=== PATIENT | female | born 1965 | race American Indian/Alaskan Native ===

== ENCOUNTER 2020-09-27 15:55 | Inpatient (IN) | payer MEDICARE ==
--- NOTE | 2020-09-28 10:00 | History and Physical Report ---
GP History & Physical - History of Present Illness Date of admission: 09/27/20 Date of Examination: 09/28/20 Reason for Admission: Danger to others, Extensive Evaluation Required, Failure of Outpatient Treatment History of Present Illness: Per ER Note: Patient is 55 years old female with history of schizophrenia. Patient brought to the emergency room accompanied by her son for mental health evaluation. Patient signed stated that she stopped taking her psychiatric medication few days ago. He stated that she became more aggressive and loud and threatening to other people. He stated that she tried to jump in the car this afternoon. Patient is very agitated with pressure speech. Patient is obviously responding to internal stimuli. Patient given Geodon 20 mg IM. Gurpreet Burton is a 55y/o female whom I first evaluated in the ER. At that time the patient was argumentative and guarded. She was responding to internal stimuli. During my evaluation of the patient today, the patient is still acutely psychotic, but worse today. She is walking out of her room shouting, and visibly upset. She is tossing clothing and linen in the [place] in front of another patient's room. She slung a cup at my feet. She says "I'm getting my sh and getting out of here. 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 She is seem standing against the wall in a bizarre way, with her arm raised. When I call her name, she says "I'm trying to protect my son. Don't come up here if your last name is not ." PAST PSYCHIATRIC HISTORY: (obtained info yesterday) Diagnoses: Schizophrenia Suicide attempts or Self-harm behavior: Denies Prior psychiatric hospitalizations: Denies Substance Abuse history: Denies Previous psychiatric medications tried: would not say Outpatient treatment: not in awhile PAST MEDICAL HISTORY: None reported or document Family Psychiatric History: None reported or documented SOCIAL HISTORY Marital Status: Single Living Arrangements: alone Employment Status: Disabled Access to guns/weapons: denies Education: History of Abuse: denies Legal History: denies REVIEW OF SYSTEMS Constitutional: Negative for weight loss ENT: Negative for stridor Respiratory: Negative for cough or hemoptysis All other systems reviewed and are negative MENTAL STATUS EXAMINATION General Appearance and Behavior: Age appropriate, wearing appropriate clothes, cooperative polite with questioning, good eye contact, argumentative, uncooperative, agitated Cooperation: uncooperative, guarded Psychomotor Behavior: Psychomotor normal Mood: Affect and affective range: congruent with stated mood Thought Process: illogical, disorganized, responding to internal stimuli Thought Content: hallucinations Speech: Normal volume, Regular rate and rhythm Suicidal Ideation: Denies Homicidal Ideation: Denies hallucination: Auditory Delusions: None elicited Impulse Control: Intact Insight and Judgment: Poor Memory: Intact Attention: Divided Orientation: Alert and oriented Diagnoses: Schizophrenia Treatment Plan Patient admitted for inpatient psychiatric evaluation, medication adjustment and close monitoring The patient's behavior, mood, sleep and appetite will be closely monitored. Patient enrolled in individual and group therapeutic sessions and encouraged to attend. Patient provided with a safe and structured environment. Patient's physical health needs will be addressed by the Hospitalist. Hospitalist Consulted Labs including CBC, CMP, Lipid profile and Hemoglobin A1C levels ordered for baseline reference Social Assessment will be completed and the Department Manager will work with patient and family to ensure a suitable and safe disposition Medication adjustment will be made as clinically indicated Increased Olanzapine 7.5mg po daily Increased Depakote DR 250mg po BID Start Klonopin 0.5mg po BID x 3 days Start Trazodone 50mg po qhs Usual Wellness Restorationist/Preservation: - Start Trazodone 50 mg po QHS & 50 mg po QHS PRN between 10 PM & 2 AM for insomnia - Start Melatonin 5 mg po QHS to promote circadian rhythm The patient agreed on the treatment plan, understood the risk, benefit, alternative treatment, potential consequence of no treatment, and gave informed consent. Estimated days: 7 Post hospital care: primary care provider, psychiatric provider Case staffed with Dr. Browne Legal Status: Voluntary Reaction to Hospitalization: Accepting Medications and Allergies Allergies Allergy/AdvReac Type Severity Reaction Status Date / Time No Known Allergies Allergy Verified 09/26/20 22:27 Home Medications Medication Instructions Recorded Confirmed Last Taken Type Divalproex Dr [DepaKOTE DR] 125 mg PO BID 09/28/20 09/28/20 Unknown History OLANzapine [ZyPREXA] 2.5 mg PO QDAY 09/28/20 09/28/20 Unknown History Results - Results Labs/Vitals: Laboratory Last Values POC Glucose 173 mg/dL (70-105) H 09/28/20 06:34 Last Vital Signs Temp 97.7 F 09/27/20 22:00 Pulse 76 09/27/20 22:00 Resp 18 09/27/20 22:00 BP 145/84 09/27/20 22:00 Pulse Ox Physical Examination - Constitutional Vitals: Vital Signs Temp Pulse Resp BP Pulse Ox 97.7 F 76 18 145/84 09/27/20 22:00 09/27/20 22:00 09/27/20 22:00 09/27/20 22:00 Temperature -Last 24 Hours Temperature 97.7 F Mental Status Exam - Vital signs Last Vital Signs Temp 97.7 F 09/27/20 22:00 Pulse 76 09/27/20 22:00 Resp 18 09/27/20 22:00 BP 145/84 09/27/20 22:00 Pulse Ox Physician Certification - Certification Statement Physician Certification Statement: This is an acknowledgement statement that GURPREET BURTON is a 55 year old F who requires inpatient psychiatric admission for treatment which could reasonably be expected to improve the patient's condition for Estimated period of time patient will need to remain in the hospital: [ ] Plan for post-hospital care: [ ]
[2020-09-28] MEDS ORDERED: ZIPRASIDONE MESYLATE 20 MG VIAL IM PRN (10:42)
[2020-09-28] MEDS ORDERED: WATER FOR INJ Sterile (PF) 10 ML ONE (10:55)
[2020-09-28] MEDS: NITROFURANTOIN MONOHYD/M-CRYST 100 MG CAP PO SCH ×2 (11:16→21:16)
[2020-09-28] MEDS: clonazePAM 0.5 MG TAB PO SCH ×2 (11:17→21:16)
[2020-09-28] MEDS: DIVALPROEX DR 250 MG TAB PO SCH ×2 (11:20→21:17)
[2020-09-28] MEDS ORDERED: traZODone 50 MG TAB PO SCH (22:00)
[2020-09-29 07:40] LABS: Basophils # (Auto) 0.1 K/mm3 (0.0-0.1); Basophils % (Auto) 0.7 % (0.0-1.8); Eosinophils # (Auto) 0.1 K/mm3 (0.0-0.4); Eosinophils % (Auto) 0.5 % (0.0-4.3); Hematocrit 38.3 % (30.3-42.9); Hemoglobin 12.4 gm/dl (10.1-14.3); Lymphocytes # (Auto) 3.9 K/mm3 (1.2-5.4); Lymphocytes % (Auto) 35.3 % (13.4-35.0); Mean Corpuscular HGB Conc 32 % (30-34); Mean Corpuscular Volume 87 fl (79-97); Monocytes # (Auto) 1.4 K/mm3 (0.0-0.8); Monocytes % (Auto) 12.9 % (0.0-7.3); Platelet Count 339 K/mm3 (140-440); Red Blood Count 4.42 M/mm3 (3.65-5.03); Red Cell Distribution Width 13.9 % (13.2-15.2)
[2020-09-29 08:09] LABS: Albumin 4.6 g/dL (3.9-5); Calcium 10.6 mg/dL (8.4-10.2); Chol/HDL Ratio 6.9 %
--- NOTE | 2020-09-29 08:31 | Progress Note ---
Subjective Date of service: 09/29/20 Principal diagnosis: Acute psychosis Subjective Comment: The patient was seen today, she is delusional. She is talking loudly to herself. Her thoughts are disorganized, but she's much more calm and cooperative today than yesterday. She tells me "I am a desilverizer and I can see under the table." She has a napkin in he hand and states "this is a snake." She then says "naw, I have medicine in here." There is nothing in the napkin. She denies SI/HI. REVIEW OF SYSTEMS Constitutional: Negative for weight loss ENT: Negative for stridor Respiratory: Negative for cough or hemoptysis All other systems reviewed and are negative MENTAL STATUS EXAMINATION General Appearance and Behavior: Age appropriate, wearing appropriate clothes, cooperative polite with questioning, good eye contact, argumentative, uncoopera tive, agitated Cooperation: uncooperative, guarded Psychomotor Behavior: Psychomotor normal Mood: Affect and affective range: congruent with stated mood Thought Process: illogical, disorganized, responding to internal stimuli Thought Content: hallucinations Speech: Normal volume, Regular rate and rhythm Suicidal Ideation: Denies Homicidal Ideation: Denies hallucination: Auditory Delusions: None elicited Impulse Control: Intact Insight and Judgment: Poor Memory: Intact Attention: Divided Orientation: Alert and oriented Diagnoses: Schizophrenia Treatment Plan Patient admitted for inpatient psychiatric evaluation, medication adjustment and close monitoring The patient's behavior, mood, sleep and appetite will be closely monitored. Patient enrolled in individual and group therapeutic sessions and encouraged to attend. Patient provided with a safe and structured environment. Patient's physical health needs will be addressed by the Hospitalist. Hospitalist Consulted Labs including CBC, CMP, Lipid profile and Hemoglobin A1C levels ordered for baseline reference Social Assessment will be completed and the Mail Sorter will work with patient and family to ensure a suitable and safe disposition Medication adjustment will be made as clinically indicated Increased Olanzapine 10mg po daily Increased Depakote DR 250mg po TID Continue Klonopin 0.5mg po BID x 3 days Increase Trazodone 100mg po qhs Usual Wellness Buddhist/Preservation: - Start Trazodone 50 mg po QHS & 50 mg po QHS PRN between 10 PM & 2 AM for insomnia - Start Melatonin 5 mg po QHS to promote circadian rhythm The patient agreed on the treatment plan, understood the risk, benefit, alternative treatment, potential consequence of no treatment, and gave informed consent. Estimated days: 4 Post hospital care: primary care provider, psychiatric provider Case staffed with Dr. Browne Medications and Allergies Allergies Allergy/AdvReac Type Severity Reaction Status Date / Time No Known Allergies Allergy Verified 09/26/20 22:27 Home Medications Medication Instructions Recorded Confirmed Last Taken Type Divalproex Dr [DepaKOTE DR] 125 mg PO BID 09/28/20 09/28/20 Unknown History OLANzapine [ZyPREXA] 2.5 mg PO QDAY 09/28/20 09/28/20 Unknown History Active Meds: Active Medications Clonazepam (Clonazepam 0.5 Mg Tab) 0.5 mg PO BID [facility] Stop: 10/02/20 06:00 Last Admin: 09/28/20 21:16 Dose: 0.5 mg Documented by: Divalproex Sodium (Divalproex Dr 250 Mg Tab) 250 mg PO TID [facility] Nitrofurantoin Macrocrystals (Nitrofurantoin Monohyd/M-Cryst 100 Mg Cap) 100 mg PO BID [facility] Stop: 10/05/20 06:00 Last Admin: 09/28/20 21:16 Dose: 100 mg Documented by: Olanzapine (Olanzapine 10 Mg Tab) 10 mg PO QDAY [facility] Trazodone HCl (Trazodone 50 Mg Tab) 50 mg PO QHS [facility] Last Admin: 09/28/20 21:16 Dose: 50 mg Documented by: Results - Results Labs/Vitals: Laboratory Last Values WBC 11.1 K/mm3 (4.5-11.0) H 09/29/20 07:17 RBC 4.42 M/mm3 (3.65-5.03) 09/29/20 07:17 Hgb 12.4 gm/dl (10.1-14.3) 09/29/20 07:17 Hct 38.3 % (30.3-42.9) 09/29/20 07:17 MCV 87 fl (79-97) 09/29/20 07:17 MCH 28 pg (28-32) 09/29/20 07:17 MCHC 32 % (30-34) 09/29/20 07:17 RDW 13.9 % (13.2-15.2) 09/29/20 07:17 Plt Count 339 K/mm3 (140-440) 09/29/20 07:17 Lymph % (Auto) 35.3 % (13.4-35.0) H 09/29/20 07:17 [place] % (Auto) 12.9 % (0.0-7.3) H 09/29/20 07:17 Eos % (Auto) 0.5 % (0.0-4.3) 09/29/20 07:17 Baso % (Auto) 0.7 % (0.0-1.8) 09/29/20 07:17 Lymph # (Auto) 3.9 K/mm3 (1.2-5.4) 09/29/20 07:17 [place] # (Auto) 1.4 K/mm3 (0.0-0.8) H 09/29/20 07:17 Eos # (Auto) 0.1 K/mm3 (0.0-0.4) 09/29/20 07:17 Baso # (Auto) 0.1 K/mm3 (0.0-0.1) 09/29/20 07:17 Seg Neutrophils % 50.6 % (40.0-70.0) 09/29/20 07:17 Seg Neutrophils # 5.6 K/mm3 (1.8-7.7) 09/29/20 07:17 Sodium 141 mmol/L (137-145) 09/29/20 07:17 Potassium 3.5 mmol/L (3.6-5.0) L 09/29/20 07:17 Chloride 101.1 mmol/L (98-107) 09/29/20 07:17 Carbon Dioxide 25 mmol/L (22-30) 09/29/20 07:17 Anion Gap 18 mmol/L 09/29/20 07:17 BUN 49 mg/dL (7-17) H 09/29/20 07:17 Creatinine 1.2 mg/dL (0.6-1.2) 09/29/20 07:17 Estimated GFR 57 ml/min 09/29/20 07:17 BUN/Creatinine Ratio 41 % 09/29/20 07:17 Glucose 156 mg/dL (65-100) H 09/29/20 07:17 POC Glucose 118 mg/dL (70-105) H 09/29/20 06:29 Hemoglobin A1c 7.4 % (4-6) H 09/29/20 07:17 Calcium 10.6 mg/dL (8.4-10.2) H 09/29/20 07:17 Total Bilirubin 0.60 mg/dL (0.1-1.2) 09/29/20 07:17 AST 31 units/L (5-40) 09/29/20 07:17 ALT 28 units/L (7-56) 09/29/20 07:17 Alkaline Phosphatase 107 units/L (35-129) 09/29/20 07:17 Total Protein 8.1 g/dL (6.3-8.2) 09/29/20 07:17 Albumin 4.6 g/dL (3.9-5) 09/29/20 07:17 Albumin/Globulin Ratio 1.3 % 09/29/20 07:17 Triglycerides 165 mg/dL (2-149) H 09/29/20 07:17 Cholesterol 214 mg/dL (50-199) H 09/29/20 07:17 LDL Cholesterol Direct 161 mg/dL (50-130) H 09/29/20 07:17 HDL Cholesterol 31 mg/dL (40-59) L 09/29/20 07:17 Cholesterol/HDL Ratio 6.90 % 09/29/20 07:17 Last Vital Signs Temp 98.4 F 09/28/20 22:00 Pulse 82 09/29/20 07:09 Resp 16 09/28/20 22:00 BP 167/85 09/28/20 22:00 Pulse Ox 99 09/29/20 07:09
[2020-09-29] MEDS ORDERED: ZIPRASIDONE MESYLATE 20 MG VIAL IM PRN (09:30)
[2020-09-29] MEDS ORDERED: DIVALPROEX DR 250 MG TAB PO ONE (09:30)
[2020-09-29] MEDS: clonazePAM 0.5 MG TAB PO SCH ×3 (12:22→21:57)
[2020-09-29] MEDS: NITROFURANTOIN MONOHYD/M-CRYST 100 MG CAP PO SCH ×3 (12:22→21:59)
[2020-09-29] MEDS: DIVALPROEX DR 250 MG TAB PO SCH ×3 (14:16→21:57)
--- NOTE | 2020-09-29 18:05 | Consultation ---
History of Present Illness - Reason for Consult medical management Requesting physician: EDWIN CHURCH - History of Present Illness 55 YO Female HTN, DM, Schizophrenia admitted to [facility] for Psychiatric stabilization. Consult placed by Dr. Chruch for medical management. Patient seen and evaluated in the recreation room. Patient denies fever, chills, chest pain, palpitation, adductive cough, skin rash, recent ill contact, or known exposure to COVID-19. No reported nursing events. Past History Past Medical History: diabetes, hypertension Past Surgical History: No surgical history, Other (Reviewed) Social history: single. denies: smoking Family history: diabetes, hypertension Medications and Allergies Allergies Allergy/AdvReac Type Severity Reaction Status Date / Time No Known Allergies Allergy Verified 09/26/20 22:27 Home Medications Medication Instructions Recorded Confirmed Last Taken Type Divalproex Dr [DepaKOTE DR] 125 mg PO BID 09/28/20 09/28/20 Unknown History OLANzapine [ZyPREXA] 2.5 mg PO QDAY 09/28/20 09/28/20 Unknown History Active Meds: Active Medications Clonazepam (Clonazepam 0.5 Mg Tab) 0.5 mg PO BID [facility] Stop: 10/02/20 06:00 Last Admin: 09/29/20 12:22 Dose: Not Given Documented by: Divalproex Sodium (Divalproex Dr 250 Mg Tab) 250 mg PO TID [facility] Last Admin: 09/29/20 14:16 Dose: Not Given Documented by: Insulin Human Lispro (Insulin Lispro 100 Unit/Ml) 0 unit SUB-Q ACHS [facility]; Protocol Nitrofurantoin Macrocrystals (Nitrofurantoin Monohyd/M-Cryst 100 Mg Cap) 100 mg PO BID [facility] Stop: 10/05/20 06:00 Last Admin: 09/29/20 12:22 Dose: Not Given Documented by: Olanzapine (Olanzapine 10 Mg Tab) 10 mg PO QDAY [facility] Last Admin: 09/29/20 12:22 Dose: Not Given Documented by: Trazodone HCl (Trazodone 100 Mg Tab) 100 mg PO QHS [facility] Ziprasidone (Ziprasidone Mesylate 20 Mg Vial) 20 mg IM Q6H PRN PRN Reason: Agitation Stop: 09/29/20 23:00 Review of Systems Constitutional: no weight loss, no weight gain, no fever, no chills Ears, nose, mouth and throat: no ear pain, no ear discharge, no decreased hearing, no nose pain, no nasal congestion Breasts: no change in shape, no swelling, no mass Cardiovascular: no chest pain, no orthopnea (Low), no rapid/irregular heart beat Respiratory: no cough, no excessive sputum, no shortness of breath Gastrointestinal: no nausea, no vomiting, no diarrhea Genitourinary Female: no pelvic pain, no flank pain, no dysuria, no urinary frequency, no urgency Rectal: no pain, no incontinence, no bleeding Musculoskeletal: no neck stiffness, no neck pain, no shooting arm pain, no low back pain, no leg numbness/tingling Integumentary: no rash, no pruritis, no redness, no sores, no wounds Neurological: no head injury, no transient paralysis, no parathesias, no tingling, no seizures Psychiatric: no anxiety, no change in sleep habits, no insomnia, no change in appetite, no change in libido, no suicidal ideation Endocrine: no cold intolerance, no heat intolerance, no polydipsia, no flushing, no high blood sugars, no other Hematologic/Lymphatic: no easy bruising, no easy bleeding, no lymphadenopathy, no lymphedema Allergic/Immunologic: no allergic rhinitis, no wheezing, no persistent infections Exam - Constitutional Vitals: Temp Pulse Resp BP Pulse Ox 97.6 F 65 18 153/72 96 09/29/20 08:57 09/29/20 13:25 09/29/20 08:57 09/29/20 13:25 09/29/20 11:11 General appearance: Present: no acute distress, well-nourished - EENT Eyes: Present: PERRL ENT: clear oral mucosa, hearing decreased - Neck Neck: Present: supple, normal ROM - Respiratory Respiratory effort: normal Respiratory: bilateral: CTA - Cardiovascular Heart Sounds: Present: S1 & S2. Absent: rub, click - Extremities Extremities: pulses symmetrical, No edema Peripheral Pulses: within normal limits - Abdominal General gastrointestinal: Present: soft, non-tender, non-distended, normal bowel sounds Female genitourinary: Present: normal - Integumentary Integumentary: Present: clear, warm, dry - Musculoskeletal Musculoskeletal: gait normal, strength equal bilaterally - Psychiatric Psychiatric: appropriate mood/affect, intact judgment & insight - Neurologic Neurologic: CNII-XII intact, moves all extremities Results - Labs CBC & Chem 7: 09/29/20 07:17 09/29/20 07:17 Labs: Abnormal lab results 09/28/20 09/29/20 09/29/20 Range/Units 19:53 06:29 07:17 WBC 11.1 H (4.5-11.0) K/mm3 Lymph % (Auto) 35.3 H (13.4-35.0) % [place] % (Auto) 12.9 H (0.0-7.3) % [place] # (Auto) 1.4 H (0.0-0.8) K/mm3 Potassium (3.6-5.0) mmol/L BUN (7-17) mg/dL Glucose (65-100) mg/dL POC Glucose 188 H 118 H (70-105) mg/dL Hemoglobin A1c (4-6) % Calcium (8.4-10.2) mg/dL Triglycerides (2-149) mg/dL Cholesterol (50-199) mg/dL LDL Cholesterol Direct (50-130) mg/dL HDL Cholesterol (40-59) mg/dL 09/29/20 09/29/20 09/29/20 Range/Units 07:17 07:17 11:28 WBC (4.5-11.0) K/mm3 Lymph % (Auto) (13.4-35.0) % [place] % (Auto) (0.0-7.3) % [place] # (Auto) (0.0-0.8) K/mm3 Potassium 3.5 L (3.6-5.0) mmol/L BUN 49 H (7-17) mg/dL Glucose 156 H (65-100) mg/dL POC Glucose 168 H (70-105) mg/dL Hemoglobin A1c 7.4 H (4-6) % Calcium 10.6 H (8.4-10.2) mg/dL Triglycerides 165 H (2-149) mg/dL Cholesterol 214 H (50-199) mg/dL LDL Cholesterol Direct 161 H (50-130) mg/dL HDL Cholesterol 31 L (40-59) mg/dL 09/29/20 Range/Units 16:21 WBC (4.5-11.0) K/mm3 Lymph % (Auto) (13.4-35.0) % [place] % (Auto) (0.0-7.3) % [place] # (Auto) (0.0-0.8) K/mm3 Potassium (3.6-5.0) mmol/L BUN (7-17) mg/dL Glucose (65-100) mg/dL POC Glucose 200 H (70-105) mg/dL Hemoglobin A1c (4-6) % Calcium (8.4-10.2) mg/dL Triglycerides (2-149) mg/dL Cholesterol (50-199) mg/dL LDL Cholesterol Direct (50-130) mg/dL HDL Cholesterol (40-59) mg/dL Assessment and Plan - Patient Problems (1) Hypertension Current Visit: Yes Status: Acute Qualifiers: Hypertension type: primary hypertension Qualified Code(s): I10 - Essential (primary) hypertension Plan to address problem: Monitor blood pressure every shift, continue medical management (2) Diabetes Current Visit: Yes Status: Acute Plan to address problem: Consistent carbohydrate diet, Accu-Chek, hypoglycemia protocol, (3) Schizophrenia Current Visit: Yes Status: Acute (4) Obesity Current Visit: Yes Status: Acute Qualifiers: Body mass index: BMI 40.0-44.9 Plan to address problem: Balanced diet, increase physical activity discharge, outpatient pulmonary follow-up for sleep study, CPAP nightly
[2020-09-29] MEDS: traZODone 100 MG TAB PO SCH ×2 (21:43→21:58)
[2020-09-29] MEDS: INSULIN LISPRO 100 UNIT/ML SUB-Q SCH (21:56)
[2020-09-29] MEDS ORDERED: WATER FOR INJ Sterile (PF) 10 ML ONE (22:58)
[2020-09-29] MEDS: ZIPRASIDONE MESYLATE 20 MG VIAL IM PRN (23:18)
[2020-09-30] MEDS: INSULIN LISPRO 100 UNIT/ML SUB-Q SCH ×4 (07:31→21:13)
--- NOTE | 2020-09-30 09:04 | Progress Note ---
Subjective Date of service: 09/30/20 Principal diagnosis: Acute psychosis Subjective Comment: 09/29/2020: The patient was seen today, she is delusional. She is talking loudly to herself. Her thoughts are disorganized, but she's much more calm and cooperative today than yesterday. 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 She denies SI/HI. 09/30/2020: I interviewed the patient this morning. Medical records reviewed and patient's progress was discussed with unit staff. Nursing staff reports that "last evening the patient's mood was labile. She threatened and yelled at the other patients until they were frightened. She is difficult to redirect. She was talking to herself. Her appetite is good but she refused all medications. At bedtime the patient began to act out by laying in the floor at times partially clothed. When redirected she would get into staffs faces in a threatening manner. Security was called to stand by while patient was given Geodon 20 mg IM. Overnight the Geodon was effective until around 6 am. She is now laying in the floor in her room partially clothed. She refuses to get up. She states she did not fall. Will continue to monitor patient for safety." In my interview with the patient this morning, the patient was seen in the activity room laughing inappropriately. Patient presents with disorganized thinking. When asked about her sleep, she states " I am seeing psych, I am seeing stars and my ." Patient covered her eyes with her hand. No changes to the treatment plan today. REVIEW OF SYSTEMS Constitutional: Negative for weight loss ENT: Negative for stridor Respiratory: Negative for cough or hemoptysis All other systems reviewed and are negative MENTAL STATUS EXAMINATION General Appearance and Behavior: Age appropriate, wearing appropriate clothes, cooperative polite with questioning, good eye contact. Cooperation: cooperative, guarded Psychomotor Behavior: Psychomotor normal Mood: ok Affect and affective range: congruent with stated mood Thought Process: illogical, disorganized, responding to internal stimuli Thought Content: hallucinations Speech: Normal volume, Regular rate and rhythm Suicidal Ideation: Denies Homicidal Ideation: Denies hallucination: unknown Delusions: yes Impulse Control: Intact Insight and Judgment: poor Memory: abnormal Attention: Distractible Orientation: Alert and oriented to self Diagnoses: Schizophrenia Treatment Plan Patient admitted for inpatient psychiatric evaluation, medication adjustment and close monitoring The patient's behavior, mood, sleep and appetite will be closely monitored. Patient enrolled in individual and group therapeutic sessions and encouraged to attend. Patient provided with a safe and structured environment. Patient's physical health needs will be addressed by the Hospitalist. Hospitalist Consulted Labs including CBC, CMP, Lipid profile and Hemoglobin A1C levels ordered for baseline reference Social Assessment will be completed and the Manager Emergency will work with patient and family to ensure a suitable and safe disposition Medication adjustment will be made as clinically indicated Continue Olanzapine 10mg po daily Continue Depakote DR 250mg po TID Continue Klonopin 0.5mg po BID x 3 days Continue Trazodone 100mg po qhs [facility]ness [employer]: - Start Trazodone 50 mg po QHS & 50 mg po QHS PRN between 10 PM & 2 AM for insomnia - Start Melatonin 5 mg po QHS to promote circadian rhythm The patient agreed on the treatment plan, understood the risk, benefit, alternative treatment, potential consequence of no treatment, and gave informed consent. Estimated days: 4 Post hospital care: primary care provider, psychiatric provider Case staffed with Dr. Browne Medications and Allergies Allergies Allergy/AdvReac Type Severity Reaction Status Date / Time No Known Allergies Allergy Verified 09/26/20 22:27 Home Medications Medication Instructions Recorded Confirmed Last Taken Type Divalproex Dr [DepaKOTE DR] 125 mg PO BID 09/28/20 09/28/20 Unknown History OLANzapine [ZyPREXA] 2.5 mg PO QDAY 09/28/20 09/28/20 Unknown History Active Meds: Active Medications Amlodipine Besylate (Amlodipine 5 Mg Tab) 5 mg PO QDAY [facility] Clonazepam (Clonazepam 0.5 Mg Tab) 0.5 mg PO BID [facility] Stop: 10/02/20 06:00 Last Admin: 09/29/20 21:57 Dose: Not Given Documented by: Divalproex Sodium (Divalproex Dr 250 Mg Tab) 250 mg PO TID [facility] Last Admin: 09/29/20 21:57 Dose: Not Given Documented by: Insulin Human Lispro (Insulin Lispro 100 Unit/Ml) 0 unit SUB-Q ACHS [facility]; Protocol Last Admin: 09/30/20 07:31 Dose: Not Given Documented by: Nitrofurantoin Macrocrystals (Nitrofurantoin Monohyd/M-Cryst 100 Mg Cap) 100 mg PO BID [facility] Stop: 10/05/20 06:00 Last Admin: 09/29/20 21:59 Dose: Not Given Documented by: Olanzapine (Olanzapine 10 Mg Tab) 10 mg PO QDAY [facility] Last Admin: 09/29/20 12:22 Dose: Not Given Documented by: Trazodone HCl (Trazodone 100 Mg Tab) 100 mg PO QHS [facility] Last Admin: 09/29/20 21:58 Dose: Not Given Documented by: Ziprasidone (Ziprasidone Mesylate 20 Mg Vial) 20 mg IM Q6H PRN PRN Reason: Agitation Last Admin: 09/29/20 23:18 Dose: 20 mg Documented by: Results - Results Labs/Vitals: Laboratory Last Values WBC 11.1 K/mm3 (4.5-11.0) H 09/29/20 07:17 RBC 4.42 M/mm3 (3.65-5.03) 09/29/20 07:17 Hgb 12.4 gm/dl (10.1-14.3) 09/29/20 07:17 Hct 38.3 % (30.3-42.9) 09/29/20 07:17 MCV 87 fl (79-97) 09/29/20 07:17 MCH 28 pg (28-32) 09/29/20 07:17 MCHC 32 % (30-34) 09/29/20 07:17 RDW 13.9 % (13.2-15.2) 09/29/20 07:17 Plt Count 339 K/mm3 (140-440) 09/29/20 07:17 Lymph % (Auto) 35.3 % (13.4-35.0) H 09/29/20 07:17 [place] % (Auto) 12.9 % (0.0-7.3) H 09/29/20 07:17 Eos % (Auto) 0.5 % (0.0-4.3) 09/29/20 07:17 Baso % (Auto) 0.7 % (0.0-1.8) 09/29/20 07:17 Lymph # (Auto) 3.9 K/mm3 (1.2-5.4) 09/29/20 07:17 [place] # (Auto) 1.4 K/mm3 (0.0-0.8) H 09/29/20 07:17 Eos # (Auto) 0.1 K/mm3 (0.0-0.4) 09/29/20 07:17 Baso # (Auto) 0.1 K/mm3 (0.0-0.1) 09/29/20 07:17 Seg Neutrophils % 50.6 % (40.0-70.0) 09/29/20 07:17 Seg Neutrophils # 5.6 K/mm3 (1.8-7.7) 09/29/20 07:17 Sodium 141 mmol/L (137-145) 09/29/20 07:17 Potassium 3.5 mmol/L (3.6-5.0) L 09/29/20 07:17 Chloride 101.1 mmol/L (98-107) 09/29/20 07:17 Carbon Dioxide 25 mmol/L (22-30) 09/29/20 07:17 Anion Gap 18 mmol/L 09/29/20 07:17 BUN 49 mg/dL (7-17) H 09/29/20 07:17 Creatinine 1.2 mg/dL (0.6-1.2) 09/29/20 07:17 Estimated GFR 57 ml/min 09/29/20 07:17 BUN/Creatinine Ratio 41 % 09/29/20 07:17 Glucose 156 mg/dL (65-100) H 09/29/20 07:17 POC Glucose 132 mg/dL (70-105) H 09/30/20 06:49 Hemoglobin A1c 7.4 % (4-6) H 09/29/20 07:17 Calcium 10.6 mg/dL (8.4-10.2) H 09/29/20 07:17 Total Bilirubin 0.60 mg/dL (0.1-1.2) 09/29/20 07:17 AST 31 units/L (5-40) 09/29/20 07:17 ALT 28 units/L (7-56) 09/29/20 07:17 Alkaline Phosphatase 107 units/L (35-129) 09/29/20 07:17 Total Protein 8.1 g/dL (6.3-8.2) 09/29/20 07:17 Albumin 4.6 g/dL (3.9-5) 09/29/20 07:17 Albumin/Globulin Ratio 1.3 % 09/29/20 07:17 Triglycerides 165 mg/dL (2-149) H 09/29/20 07:17 Cholesterol 214 mg/dL (50-199) H 09/29/20 07:17 LDL Cholesterol Direct 161 mg/dL (50-130) H 09/29/20 07:17 HDL Cholesterol 31 mg/dL (40-59) L 09/29/20 07:17 Cholesterol/HDL Ratio 6.90 % 09/29/20 07:17 TSH 0.972 mlU/mL (0.270-4.200) 09/29/20 07:17 Last Vital Signs Temp 97.7 F 09/30/20 07:50 Pulse 86 09/30/20 07:50 Resp 18 09/30/20 07:50 BP 125/64 09/30/20 07:50 Pulse Ox 98 09/30/20 07:50
[2020-09-30] MEDS: DIVALPROEX DR 250 MG TAB PO SCH ×3 (09:18→20:38)
[2020-09-30] MEDS: clonazePAM 0.5 MG TAB PO SCH ×2 (09:18→21:13)
[2020-09-30] MEDS: NITROFURANTOIN MONOHYD/M-CRYST 100 MG CAP PO SCH ×2 (09:18→21:13)
[2020-09-30] MEDS: amLODIPine 5 MG TAB PO SCH (09:18)
[2020-09-30] MEDS: traZODone 100 MG TAB PO SCH (21:13)
--- NOTE | 2020-10-01 08:08 | Progress Note ---
Subjective Date of service: 10/01/20 Principal diagnosis: Acute psychosis Subjective Comment: 09/29/2020: The patient was seen today, she is delusional. She is talking loudly to herself. Her thoughts are disorganized, but she's much more calm and cooperative today than yesterday. 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 She denies SI/HI. 09/30/2020: I interviewed the patient this morning. Medical records reviewed and patient's progress was discussed with unit staff. Nursing staff reports that "last evening the patient's mood was labile. She threatened and yelled at the other patients until they were frightened. She is difficult to redirect. She was talking to herself. Her appetite is good but she refused all medications. At bedtime the patient began to act out by laying in the floor at times partially clothed. When redirected she would get into staffs faces in a threatening manner. Security was called to stand by while patient was given Geodon 20 mg IM. Overnight the Geodon was effective until around 6 am. She is now laying in the floor in her room partially clothed. She refuses to get up. She states she did not fall. Will continue to monitor patient for safety." In my interview with the patient this morning, the patient was seen in the activity room laughing inappropriately. Patient presents with disorganized thinking. When asked about her sleep, she states " I am seeing psych, I am seeing stars and my ." Patient covered her eyes with her hand. No changes to the treatment plan today. 10/01/2020: Patient was seen sitting on the floor in the activity room. Patient continue to be disorganized. I interviewed the patient this morning. Medical records reviewed and patient's progress was discussed with unit staff. Nursing staff reports that patient "Last evening the patient presented with labile mood and irritable affect. She instigated conflict with peers at every opportunity. She was difficult to redirect. Patient's behavior presents as attention seeking. Her appetite is good and she was medication compliant. There are two of her peers that are having difficulty with her behavior. She knows that and tends to focus on them. Last evening she reached out her hands to the back of a male peer's chair knowing that it would upset him. When she got a reaction from him she smiled. Staff is staying close to keep patient safe. She slept only 2 hours and was awake in the floor the rest of the night. Will continue to monitor pa helena for safety." Changed Depakote DR from 250mg po TID to 500mg po BID. REVIEW OF SYSTEMS Constitutional: Negative for weight loss ENT: Negative for stridor Respiratory: Negative for cough or hemoptysis All other systems reviewed and are negative MENTAL STATUS EXAMINATION General Appearance and Behavior: Age appropriate, wearing appropriate clothes, cooperative polite with questioning, good eye contact. Cooperation: cooperative, guarded Psychomotor Behavior: Psychomotor normal Mood: ok Affect and affective range: congruent with stated mood Thought Process: illogical, disorganized, responding to internal stimuli Thought Content: hallucinations Speech: Normal volume, Regular rate and rhythm Suicidal Ideation: Denies Homicidal Ideation: Denies hallucination: unknown Delusions: yes Impulse Control: Intact Insight and Judgment: poor Memory: abnormal Attention: Distractible Orientation: Alert and oriented to self Diagnoses: Schizophrenia Treatment Plan Patient admitted for inpatient psychiatric evaluation, medication adjustment and close monitoring The patient's behavior, mood, sleep and appetite will be closely monitored. Patient enrolled in individual and group therapeutic sessions and encouraged to attend. Patient provided with a safe and structured environment. Patient's physical health needs will be addressed by the Hospitalist. Hospitalist Consulted Labs including CBC, CMP, Lipid profile and Hemoglobin A1C levels ordered for baseline reference Social Assessment will be completed and the Bundle Sorter will work with patient and family to ensure a suitable and safe disposition Medication adjustment will be made as clinically indicated Continue Olanzapine 10mg po daily Start Depakote DR 500mg po BID Continue Klonopin 0.5mg po BID x 3 days Continue Trazodone 100mg po qhs [facility] [employer]: - Start Trazodone 50 mg po QHS & 50 mg po QHS PRN between 10 PM & 2 AM for insomnia - Start Melatonin 5 mg po QHS to promote circadian rhythm The patient agreed on the treatment plan, understood the risk, benefit, alternative treatment, potential consequence of no treatment, and gave informed consent. Estimated days: 4 Post hospital care: primary care provider, psychiatric provider Case staffed with Dr. Browne Medications and Allergies Medications and Allergies Allergies Allergy/AdvReac Type Severity Reaction Status Date / Time No Known Allergies Allergy Verified 09/26/20 22:27 Home Medications Medication Instructions Recorded Confirmed Last Taken Type Divalproex Dr [DepaKOTE DR] 125 mg PO BID 09/28/20 09/28/20 Unknown History OLANzapine [ZyPREXA] 2.5 mg PO QDAY 09/28/20 09/28/20 Unknown History Active Meds: Active Medications Amlodipine Besylate (Amlodipine 5 Mg Tab) 5 mg PO QDAY [facility] Last Admin: 09/30/20 09:18 Dose: 5 mg Documented by: Clonazepam (Clonazepam 0.5 Mg Tab) 0.5 mg PO BID [facility] Stop: 10/02/20 06:00 Last Admin: 09/30/20 21:13 Dose: 0.5 mg Documented by: Divalproex Sodium (Divalproex Dr 500 Mg Tab) 500 mg PO BID [facility] Insulin Human Lispro (Insulin Lispro 100 Unit/Ml) 0 unit SUB-Q [facility]; Protocol Last Admin: 09/30/20 21:13 Dose: Not Given Documented by: Nitrofurantoin Macrocrystals (Nitrofurantoin Monohyd/M-Cryst 100 Mg Cap) 100 mg PO BID [facility] Stop: 10/05/20 06:00 Last Admin: 09/30/20 21:13 Dose: 100 mg Documented by: Olanzapine (Olanzapine 10 Mg Tab) 10 mg PO QDAY [facility] Last Admin: 09/30/20 09:18 Dose: 10 mg Documented by: Trazodone HCl (Trazodone 100 Mg Tab) 100 mg PO QHS [facility] Last Admin: 09/30/20 21:13 Dose: 100 mg Documented by: Ziprasidone (Ziprasidone Mesylate 20 Mg Vial) 20 mg IM Q6H PRN PRN Reason: Agitation Last Admin: 09/29/20 23:18 Dose: 20 mg Documented by: Results - Results Labs/Vitals: Laboratory Last Values WBC 11.1 K/mm3 (4.5-11.0) H 09/29/20 07:17 RBC 4.42 M/mm3 (3.65-5.03) 09/29/20 07:17 Hgb 12.4 gm/dl (10.1-14.3) 09/29/20 07:17 Hct 38.3 % (30.3-42.9) 09/29/20 07:17 MCV 87 fl (79-97) 09/29/20 07:17 MCH 28 pg (28-32) 09/29/20 07:17 MCHC 32 % (30-34) 09/29/20 07:17 RDW 13.9 % (13.2-15.2) 09/29/20 07:17 Plt Count 339 K/mm3 (140-440) 09/29/20 07:17 Lymph % (Auto) 35.3 % (13.4-35.0) H 09/29/20 07:17 [place] % (Auto) 12.9 % (0.0-7.3) H 09/29/20 07:17 Eos % (Auto) 0.5 % (0.0-4.3) 09/29/20 07:17 Baso % (Auto) 0.7 % (0.0-1.8) 09/29/20 07:17 Lymph # (Auto) 3.9 K/mm3 (1.2-5.4) 09/29/20 07:17 [place]ack[place] # (Auto) 1.4 K/mm3 (0.0-0.8) H 09/29/20 07:17 Eos # (Auto) 0.1 K/mm3 (0.0-0.4) 09/29/20 07:17 Baso # (Auto) 0.1 K/mm3 (0.0-0.1) 09/29/20 07:17 Seg Neutrophils % 50.6 % (40.0-70.0) 09/29/20 07:17 Seg Neutrophils # 5.6 K/mm3 (1.8-7.7) 09/29/20 07:17 Sodium 141 mmol/L (137-145) 09/29/20 07:17 Potassium 3.5 mmol/L (3.6-5.0) L 09/29/20 07:17 Chloride 101.1 mmol/L (98-107) 09/29/20 07:17 Carbon Dioxide 25 mmol/L (22-30) 09/29/20 07:17 Anion Gap 18 mmol/L 09/29/20 07:17 BUN 49 mg/dL (7-17) H 09/29/20 07:17 Creatinine 1.2 mg/dL (0.6-1.2) 09/29/20 07:17 Estimated GFR 57 ml/min 09/29/20 07:17 BUN/Creatinine Ratio 41 % 09/29/20 07:17 Glucose 156 mg/dL (65-100) H 09/29/20 07:17 POC Glucose 145 mg/dL (70-105) H 10/01/20 06:10 Hemoglobin A1c 7.4 % (4-6) H 09/29/20 07:17 Calcium 10.6 mg/dL (8.4-10.2) H 09/29/20 07:17 Total Bilirubin 0.60 mg/dL (0.1-1.2) 09/29/20 07:17 AST 31 units/L (5-40) 09/29/20 07:17 ALT 28 units/L (7-56) 09/29/20 07:17 Alkaline Phosphatase 107 units/L (35-129) 09/29/20 07:17 Total Protein 8.1 g/dL (6.3-8.2) 09/29/20 07:17 Albumin 4.6 g/dL (3.9-5) 09/29/20 07:17 Albumin/Globulin Ratio 1.3 % 09/29/20 07:17 Triglycerides 165 mg/dL (2-149) H 09/29/20 07:17 Cholesterol 214 mg/dL (50-199) H 09/29/20 07:17 LDL Cholesterol Direct 161 mg/dL (50-130) H 09/29/20 07:17 HDL Cholesterol 31 mg/dL (40-59) L 09/29/20 07:17 Cholesterol/HDL Ratio 6.90 % 09/29/20 07:17 TSH 0.972 mlU/mL (0.270-4.200) 09/29/20 07:17 Last Vital Signs Temp 98.2 F 09/30/20 22:00 Pulse 97 H 09/30/20 22:00 Resp 18 09/30/20 22:00 BP 125/52 09/30/20 22:00 Pulse Ox 100 09/30/20 22:00
[2020-10-01] MEDS ORDERED: WATER FOR INJ Sterile (PF) 10 ML ONE (08:21)
[2020-10-01] MEDS: ZIPRASIDONE MESYLATE 20 MG VIAL IM PRN (08:45)
[2020-10-01] MEDS ORDERED: DIVALPROEX DR 500 MG TAB PO SCH (09:00)
[2020-10-01] MEDS: DIVALPROEX DR 500 MG TAB PO SCH ×3 (09:35→23:14)
[2020-10-01] MEDS: INSULIN LISPRO 100 UNIT/ML SUB-Q SCH ×4 (09:35→21:10)
[2020-10-01] MEDS: NITROFURANTOIN MONOHYD/M-CRYST 100 MG CAP PO SCH ×3 (09:36→23:15)
[2020-10-01] MEDS: amLODIPine 5 MG TAB PO SCH (09:42)
[2020-10-01] MEDS: clonazePAM 0.5 MG TAB PO SCH ×3 (13:27→23:15)
[2020-10-01] MEDS: traZODone 100 MG TAB PO SCH ×2 (21:10→23:14)
--- NOTE | 2020-10-02 09:17 | Progress Note ---
Subjective Date of service: 10/02/20 Principal diagnosis: Acute psychosis Subjective Comment: 09/29/2020: The patient was seen today, she is delusional. She is talking loudly to herself. Her thoughts are disorganized, but she's much more calm and cooperative today than yesterday. 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 She denies SI/HI. 09/30/2020: I interviewed the patient this morning. Medical records reviewed and patient's progress was discussed with unit staff. Nursing staff reports that "last evening the patient's mood was labile. She threatened and yelled at the other patients until they were frightened. She is difficult to redirect. She was talking to herself. Her appetite is good but she refused all medications. At bedtime the patient began to act out by laying in the floor at times partially clothed. When redirected she would get into staffs faces in a threatening manner. Security was called to stand by while patient was given Geodon 20 mg IM. Overnight the Geodon was effective until around 6 am. She is now laying in the floor in her room partially clothed. She refuses to get up. She states she did not fall. Will continue to monitor patient for safety." In my interview with the patient this morning, the patient was seen in the activity room laughing inappropriately. Patient presents with disorganized thinking. When asked about her sleep, she states " I am seeing psych, I am seeing stars and my ." Patient covered her eyes with her hand. No changes to the treatment plan today. 10/01/2020: Patient was seen sitting on the floor in the activity room. Patient continue to be disorganized. I interviewed the patient this morning. Medical records reviewed and patient's progress was discussed with unit staff. Nursing staff reports that patient "Last evening the patient presented with labile mood and irritable affect. She instigated conflict with peers at every opportunity. She was difficult to redirect. Patient's behavior presents as attention seeking. Her appetite is good and she was medication compliant. There are two of her peers that are having difficulty with her behavior. She knows that and tends to focus on them. Last evening she reached out her hands to the back of a male peer's chair knowing that it would upset him. When she got a reaction from him she smiled. Staff is staying close to keep patient safe. She slept only 2 hours and was awake in the floor the rest of the night. Will continue to monitor p atient for safety." Changed Depakote DR from 250mg po TID to 500mg po BID. 10/02/2020: The patient was seen pacing the hallway. She continues to be disorganized and responding to internal stimuli. Per nurse "Last evening the patient walked in the hallway. She presents as psychotic aeb talking to herself and holding her arms into the air and making different shapes in the air. The patient will not keep clothing on below her waist. She has a longer shirt that she is wearing. Staff has attempted to assist her with getting dressed in various ways to make it challenging to keep undressing. The patient figures out a way to continue to disrobe. She is attempting to go into a male peer's room. She refused snacks and when given fluids she throws them into the floor. She r efused all her medications. Multiple attempts to coax her into taking them were unsuccessful. Overnight the patient has walked the hallway. She has not slept any. She refuses to lay down or stay in her room. She presents as sleepy but keeps walking. She has talked to herself all night yelling out and cursing staff throughout the night. While observing her behavior of bending over staff noticed that the patient was wiping her vagina and rubbing it on the snell, doors, doorknobs, pictures, light fixtures and floors. Patient refuses to be redirected. She looks at staff, bends over wipes herself and wipes everything she can touch. This commercial real estate underwriter walked the patient to her room to talk her into resting and she grabbed my ID badge and broke it. She then threw it into the restroom. Staff were able to get it from the patient. At this time the patient is in the shower. Staff is assisting her with bathing since she can not focus enough to bathe herself. Will continue to monitor patient for safety." Continue Geodon 20mg IM every 6 hours for agitation. REVIEW OF SYSTEMS Constitutional: Negative for weight loss ENT: Negative for stridor Respiratory: Negative for cough or hemoptysis All other systems reviewed and are negative MENTAL STATUS EXAMINATION General Appearance and Behavior: Age appropriate, wearing appropriate clothes, cooperative polite with questioning, good eye contact. Cooperation: cooperative, guarded Psychomotor Behavior: Psychomotor normal Mood: unable to assess Affect and affective range: Flat Thought Process: illogical, disorganized, responding to internal stimuli Thought Content: hallucinations Speech: Normal volume, Regular rate and rhythm Suicidal Ideation:unable to assess Homicidal Ideation: unable to assess hallucination: unknown Delusions: yes Impulse Control: Intact Insight and Judgment: poor Memory: abnormal Attention: Distractible Orientation: Alert and oriented to self Diagnoses: Schizophrenia Treatment Plan Patient admitted for inpatient psychiatric evaluation, medication adjustment and close monitoring The patient's behavior, mood, sleep and appetite will be closely monitored. Patient enrolled in individual and group therapeutic sessions and encouraged to attend. Patient provided with a safe and structured environment. Patient's physical health needs will be addressed by the Hospitalist. Hospitalist Consulted Labs including CBC, CMP, Lipid profile and Hemoglobin A1C levels ordered for baseline reference Social Assessment will be completed and the Dyer Assistant will work with patient and family to ensure a suitable and safe disposition Medication adjustment will be made as clinically indicated Continue Olanzapine 10mg po daily Start Depakote DR 500mg po BID Continue Klonopin 0.5mg po BID x 3 days Continue Trazodone 100mg po qhs Usual Wellness Mu-Ism/Preservation: - Start Trazodone 50 mg po QHS & 50 mg po QHS PRN between 10 PM & 2 AM for insomnia - Start Melatonin 5 mg po QHS to promote circadian rhythm The patient agreed on the treatment plan, understood the risk, benefit, alternative treatment, potential consequence of no treatment, and gave informed consent. Estimated days: 4 Post hospital care: primary care provider, psychiatric provider Case staffed with Dr. Browne Medications and Allergies Allergies Allergy/AdvReac Type Severity Reaction Status Date / Time No Known Allergies Allergy Verified 09/26/20 22:27 Home Medications Medication Instructions Recorded Confirmed Last Taken Type Divalproex Dr [DepaKOTE DR] 125 mg PO BID 09/28/20 09/28/20 Unknown History OLANzapine [ZyPREXA] 2.5 mg PO QDAY 09/28/20 09/28/20 Unknown History Active Meds: Active Medications Amlodipine Besylate (Amlodipine 5 Mg Tab) 5 mg PO QDAY [facility] Last Admin: 10/01/20 09:42 Dose: 5 mg Documented by: Divalproex Sodium (Divalproex Dr 500 Mg Tab) 500 mg PO BID [facility] Last Admin: 10/01/20 23:14 Dose: Not Given Documented by: Insulin Human Lispro (Insulin Lispro 100 Unit/Ml) 0 unit SUB-Q ACHS [facility]; Protocol Last Admin: 10/01/20 21:10 Dose: Not Given Documented by: Nitrofurantoin Macrocrystals (Nitrofurantoin Monohyd/M-Cryst 100 Mg Cap) 100 mg PO BID [facility] Stop: 10/05/20 06:00 Last Admin: 10/01/20 23:15 Dose: Not Given Documented by: Olanzapine (Olanzapine 10 Mg Tab) 10 mg PO QDAY [facility] Last Admin: 10/01/20 09:35 Dose: 10 mg Documented by: Trazodone HCl (Trazodone 100 Mg Tab) 100 mg PO QHS [facility] Last Admin: 10/01/20 23:14 Dose: Not Given Documented by: Ziprasidone (Ziprasidone Mesylate 20 Mg Vial) 20 mg IM Q6H PRN PRN Reason: Agitation Last Admin: 10/01/20 08:45 Dose: 20 mg Documented by: Results - Results Labs/Vitals: Laboratory Last Values WBC 11.1 K/mm3 (4.5-11.0) H 09/29/20 07:17 RBC 4.42 M/mm3 (3.65-5.03) 09/29/20 07:17 Hgb 12.4 gm/dl (10.1-14.3) 09/29/20 07:17 Hct 38.3 % (30.3-42.9) 09/29/20 07:17 MCV 87 fl (79-97) 09/29/20 07:17 MCH 28 pg (28-32) 09/29/20 07:17 MCHC 32 % (30-34) 09/29/20 07:17 RDW 13.9 % (13.2-15.2) 09/29/20 07:17 Plt Count 339 K/mm3 (140-440) 09/29/20 07:17 Lymph % (Auto) 35.3 % (13.4-35.0) H 09/29/20 07:17 [place] % (Auto) 12.9 % (0.0-7.3) H 09/29/20 07:17 Eos % (Auto) 0.5 % (0.0-4.3) 09/29/20 07:17 Baso % (Auto) 0.7 % (0.0-1.8) 09/29/20 07:17 Lymph # (Auto) 3.9 K/mm3 (1.2-5.4) 09/29/20 07:17 [place] # (Auto) 1.4 K/mm3 (0.0-0.8) H 09/29/20 07:17 Eos # (Auto) 0.1 K/mm3 (0.0-0.4) 09/29/20 07:17 Baso # (Auto) 0.1 K/mm3 (0.0-0.1) 09/29/20 07:17 Seg Neutrophils % 50.6 % (40.0-70.0) 09/29/20 07:17 Seg Neutrophils # 5.6 K/mm3 (1.8-7.7) 09/29/20 07:17 Sodium 141 mmol/L (137-145) 09/29/20 07:17 Potassium 3.5 mmol/L (3.6-5.0) L 09/29/20 07:17 Chloride 101.1 mmol/L (98-107) 09/29/20 07:17 Carbon Dioxide 25 mmol/L (22-30) 09/29/20 07:17 Anion Gap 18 mmol/L 09/29/20 07:17 BUN 49 mg/dL (7-17) H 09/29/20 07:17 Creatinine 1.2 mg/dL (0.6-1.2) 09/29/20 07:17 Estimated GFR 57 ml/min 09/29/20 07:17 BUN/Creatinine Ratio 41 % 09/29/20 07:17 Glucose 156 mg/dL (65-100) H 09/29/20 07:17 POC Glucose 124 mg/dL (70-105) H 10/02/20 08:00 Hemoglobin A1c 7.4 % (4-6) H 09/29/20 07:17 Calcium 10.6 mg/dL (8.4-10.2) H 09/29/20 07:17 Total Bilirubin 0.60 mg/dL (0.1-1.2) 09/29/20 07:17 AST 31 units/L (5-40) 09/29/20 07:17 ALT 28 units/L (7-56) 09/29/20 07:17 Alkaline Phosphatase 107 units/L (35-129) 09/29/20 07:17 Total Protein 8.1 g/dL (6.3-8.2) 09/29/20 07:17 Albumin 4.6 g/dL (3.9-5) 09/29/20 07:17 Albumin/Globulin Ratio 1.3 % 09/29/20 07:17 Triglycerides 165 mg/dL (2-149) H 09/29/20 07:17 Cholesterol 214 mg/dL (50-199) H 09/29/20 07:17 LDL Cholesterol Direct 161 mg/dL (50-130) H 09/29/20 07:17 HDL Cholesterol 31 mg/dL (40-59) L 09/29/20 07:17 Cholesterol/HDL Ratio 6.90 % 09/29/20 07:17 TSH 0.972 mlU/mL (0.270-4.200) 09/29/20 07:17 Last Vital Signs Temp 97.9 F 10/01/20 22:00 Pulse 93 H 10/01/20 22:00 Resp 16 10/01/20 22:00 BP 182/84 10/01/20 22:00 Pulse Ox 99 10/01/20 22:00
[2020-10-02] MEDS: DIVALPROEX DR 500 MG TAB PO SCH ×3 (09:37→21:46)
[2020-10-02] MEDS: NITROFURANTOIN MONOHYD/M-CRYST 100 MG CAP PO SCH ×3 (09:37→21:46)
[2020-10-02] MEDS: INSULIN LISPRO 100 UNIT/ML SUB-Q SCH ×4 (09:52→22:00)
[2020-10-02] MEDS: amLODIPine 5 MG TAB PO SCH (10:00)
[2020-10-02] MEDS: ZIPRASIDONE MESYLATE 20 MG VIAL IM PRN ×2 (10:40→21:47)
[2020-10-02] MEDS: traZODone 100 MG TAB PO SCH (21:46)
[2020-10-03] MEDS: INSULIN LISPRO 100 UNIT/ML SUB-Q SCH ×4 (07:56→21:28)
--- NOTE | 2020-10-03 08:01 | Progress Note ---
Subjective Date of service: 10/03/20 Principal diagnosis: Acute psychosis Subjective Comment: 09/29/2020: The patient was seen today, she is delusional. She is talking loudly to herself. Her thoughts are disorganized, but she's much more calm and cooperative today than yesterday. 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 She denies SI/HI. 09/30/2020: I interviewed the patient this morning. Medical records reviewed and patient's progress was discussed with unit staff. Nursing staff reports that "last evening the patient's mood was labile. She threatened and yelled at the other patients until they were frightened. She is difficult to redirect. She was talking to herself. Her appetite is good but she refused all medications. At bedtime the patient began to act out by laying in the floor at times partially clothed. When redirected she would get into staffs faces in a threatening manner. Security was called to stand by while patient was given Geodon 20 mg IM. Overnight the Geodon was effective until around 6 am. She is now laying in the floor in her room partially clothed. She refuses to get up. She states she did not fall. Will continue to monitor patient for safety." In my interview with the patient this morning, the patient was seen in the activity room laughing inappropriately. Patient presents with disorganized thinking. When asked about her sleep, she states " I am seeing psych, I am seeing stars and my ." Patient covered her eyes with her hand. No changes to the treatment plan today. 10/01/2020: Patient was seen sitting on the floor in the activity room. Patient continue to be disorganized. I interviewed the patient this morning. Medical records reviewed and patient's progress was discussed with unit staff. Nursing staff reports that patient "Last evening the patient presented with labile mood and irritable affect. She instigated conflict with peers at every opportunity. She was difficult to redirect. Patient's behavior presents as attention seeking. Her appetite is good and she was medication compliant. There are two of her peers that are having difficulty with her behavior. She knows that and tends to focus on them. Last evening she reached out her hands to the back of a male peer's chair knowing that it would upset him. When she got a reaction from him she smiled. Staff is staying close to keep patient safe. She slept only 2 hours and was awake in the floor the rest of the night. Will continue to monitor patient for safety." Changed Depakote DR from 250mg po TID to 500mg po BID. 10/02/2020: The patient was seen pacing the hallway. She continues to be disorganized and responding to internal stimuli. Per nurse "Last evening the patient walked in the hallway. She presents as psychotic aeb talking to herself and holding her arms into the air and making different shapes in the air. The patient will not keep clothing on below her waist. She has a longer shirt that she is wearing. Staff has attempted to assist her with getting dressed in various ways to make it challenging to keep undressing. The patient figures out a way to continue to disrobe. She is attempting to go into a male peer's room. She refused snacks and when given fluids she throws them into the floor. She refused all her medications. Multiple attempts to coax her into taking them were unsuccessful. Overnight the patient has walked the hallway. She has not slept any. She refuses to lay down or stay in her room. She presents as sleepy but keeps walking. She has talked to herself all night yelling out and cursing staff throughout the night. While observing her behavior of bending over staff noticed that the patient was wiping her vagina and rubbing it on the snell, doors, doorknobs, pictures, light fixtures and floors. Patient refuses to be redirected. She looks at staff, bends over wipes herself and wipes everything she can touch. This creative services writer walked the patient to her room to talk her into resting and she grabbed my ID badge and broke it. She then threw it into the restroom. Staff were able to get it from the patient. At this time the patient is in the shower. Staff is assisting her with bathing since she can not focus enough to bathe herself. Will continue to monitor patient for safety." Continue Geodon 20mg IM every 6 hours for agitation. 10/03/2020: The patient was seen in her room naked. The patient continues to be confused and responding to internal stimuli. Per nurse, "Pt in and out of other patients, laying on the floor, walking around with no bottoms, constantly being redirected, PRN Geodon given, pt slept for about 6 hours, the gout up turning on the emergency bathroom light, pt requiring constant redirection, will continue to monitor." Changes to the treatment plan: Start Risperidone 1mg po BID, Depakote 500mg po TID. REVIEW OF SYSTEMS Constitutional: Negative for weight loss ENT: Negative for stridor Respiratory: Negative for cough or hemoptysis All other systems reviewed and are negative MENTAL STATUS EXAMINATION General Appearance and Behavior: Age appropriate, wearing appropriate clothes, cooperative polite with questioning, good eye contact. Cooperation: cooperative, guarded Psychomotor Behavior: Psychomotor normal Mood: unable to assess Affect and affective range: Flat Thought Process: illogical, disorganized, responding to internal stimuli Thought Content: hallucinations Speech: Normal volume, Regular rate and rhythm Suicidal Ideation:unable to assess Homicidal Ideation: unable to assess hallucination: yes Delusions: yes Impulse Control: Intact Insight and Judgment: poor Memory: abnormal Attention: Distractible Orientation: Alert and oriented to self Diagnoses: Schizophrenia Treatment Plan Patient admitted for inpatient psychiatric evaluation, medication adjustment and close monitoring The patient's behavior, mood, sleep and appetite will be closely monitored. Patient enrolled in individual and group therapeutic sessions and encouraged to attend. Patient provided with a safe and structured environment. Patient's physical health needs will be addressed by the Hospitalist. Hospitalist Consulted Labs including CBC, CMP, Lipid profile and Hemoglobin A1C levels ordered for baseline reference Social Assessment will be completed and the Computer Programmer Chief will work with patient and family to ensure a suitable and safe disposition Medication adjustment will be made as clinically indicated Start Risperidone 1mg po BID Start Depakote DR 500mg po TID Continue Trazodone 100mg po qhs Usual Wellness Worship/Preservation: - Start Trazodone 50 mg po QHS & 50 mg po QHS PRN between 10 PM & 2 AM for insomnia - Start Melatonin 5 mg po QHS to promote circadian rhythm The patient agreed on the treatment plan, understood the risk, benefit, alternative treatment, potential consequence of no treatment, and gave informed consent. Estimated days: 4 Post hospital care: primary care provider, psychiatric provider Case staffed with Dr. Browne Medications and Allergies Allergies Allergy/AdvReac Type Severity Reaction Status Date / Time No Known Allergies Allergy Verified 09/26/20 22:27 Home Medications Medication Instructions Recorded Confirmed Last Taken Type Divalproex Dr [DepaKOTE DR] 125 mg PO BID 09/28/20 09/28/20 Unknown History OLANzapine [ZyPREXA] 2.5 mg PO QDAY 09/28/20 09/28/20 Unknown History Active Meds: Active Medications Amlodipine Besylate (Amlodipine 5 Mg Tab) 5 mg PO QDAY [facility] Last Admin: 10/02/20 10:00 Dose: Not Given Documented by: Divalproex Sodium (Divalproex Dr 500 Mg Tab) 500 mg PO BID [facility] Last Admin: 10/02/20 21:46 Dose: 500 mg Documented by: Insulin Human Lispro (Insulin Lispro 100 Unit/Ml) 0 unit SUB-Q ACHS [facility]; Protocol Last Admin: 10/03/20 07:56 Dose: Not Given Documented by: Nitrofurantoin Macrocrystals (Nitrofurantoin Monohyd/M-Cryst 100 Mg Cap) 100 mg PO BID [facility] Stop: 10/05/20 06:00 Last Admin: 10/02/20 21:46 Dose: 100 mg Documented by: Olanzapine (Olanzapine 10 Mg Tab) 10 mg PO QDAY [facility] Last Admin: 10/02/20 09:45 Dose: Not Given Documented by: Trazodone HCl (Trazodone 100 Mg Tab) 100 mg PO QHS [facility] Last Admin: 10/02/20 21:46 Dose: 100 mg Documented by: Ziprasidone (Ziprasidone Mesylate 20 Mg Vial) 20 mg IM Q6H PRN PRN Reason: Agitation Last Admin: 10/02/20 21:47 Dose: 20 mg Documented by: Results - Results Labs/Vitals: Laboratory Last Values WBC 11.1 K/mm3 (4.5-11.0) H 09/29/20 07:17 RBC 4.42 M/mm3 (3.65-5.03) 09/29/20 07:17 Hgb 12.4 gm/dl (10.1-14.3) 09/29/20 07:17 Hct 38.3 % (30.3-42.9) 09/29/20 07:17 MCV 87 fl (79-97) 09/29/20 07:17 MCH 28 pg (28-32) 09/29/20 07:17 MCHC 32 % (30-34) 09/29/20 07:17 RDW 13.9 % (13.2-15.2) 09/29/20 07:17 Plt Count 339 K/mm3 (140-440) 09/29/20 07:17 Lymph % (Auto) 35.3 % (13.4-35.0) H 09/29/20 07:17 [place] % (Auto) 12.9 % (0.0-7.3) H 09/29/20 07:17 Eos % (Auto) 0.5 % (0.0-4.3) 09/29/20 07:17 Baso % (Auto) 0.7 % (0.0-1.8) 09/29/20 07:17 Lymph # (Auto) 3.9 K/mm3 (1.2-5.4) 09/29/20 07:17 [place] # (Auto) 1.4 K/mm3 (0.0-0.8) H 09/29/20 07:17 Eos # (Auto) 0.1 K/mm3 (0.0-0.4) 09/29/20 07:17 Baso # (Auto) 0.1 K/mm3 (0.0-0.1) 09/29/20 07:17 Seg Neutrophils % 50.6 % (40.0-70.0) 09/29/20 07:17 Seg Neutrophils # 5.6 K/mm3 (1.8-7.7) 09/29/20 07:17 Sodium 141 mmol/L (137-145) 09/29/20 07:17 Potassium 3.5 mmol/L (3.6-5.0) L 09/29/20 07:17 Chloride 101.1 mmol/L (98-107) 09/29/20 07:17 Carbon Dioxide 25 mmol/L (22-30) 09/29/20 07:17 Anion Gap 18 mmol/L 09/29/20 07:17 BUN 49 mg/dL (7-17) H 09/29/20 07:17 Creatinine 1.2 mg/dL (0.6-1.2) 09/29/20 07:17 Estimated GFR 57 ml/min 09/29/20 07:17 BUN/Creatinine Ratio 41 % 09/29/20 07:17 Glucose 156 mg/dL (65-100) H 09/29/20 07:17 POC Glucose 142 mg/dL (70-105) H 10/03/20 07:19 Hemoglobin A1c 7.4 % (4-6) H 09/29/20 07:17 Calcium 10.6 mg/dL (8.4-10.2) H 09/29/20 07:17 Total Bilirubin 0.60 mg/dL (0.1-1.2) 09/29/20 07:17 AST 31 units/L (5-40) 09/29/20 07:17 ALT 28 units/L (7-56) 09/29/20 07:17 Alkaline Phosphatase 107 units/L (35-129) 09/29/20 07:17 Total Protein 8.1 g/dL (6.3-8.2) 09/29/20 07:17 Albumin 4.6 g/dL (3.9-5) 09/29/20 07:17 Albumin/Globulin Ratio 1.3 % 09/29/20 07:17 Triglycerides 165 mg/dL (2-149) H 09/29/20 07:17 Cholesterol 214 mg/dL (50-199) H 09/29/20 07:17 LDL Cholesterol Direct 161 mg/dL (50-130) H 09/29/20 07:17 HDL Cholesterol 31 mg/dL (40-59) L 09/29/20 07:17 Cholesterol/HDL Ratio 6.90 % 09/29/20 07:17 TSH 0.972 mlU/mL (0.270-4.200) 09/29/20 07:17 Last Vital Signs Temp 98.5 F 10/02/20 22:00 Pulse 105 H 10/02/20 22:00 Resp 16 10/02/20 22:00 BP 131/79 10/02/20 22:00 Pulse Ox 98 10/02/20 22:00
[2020-10-03] MEDS: NITROFURANTOIN MONOHYD/M-CRYST 100 MG CAP PO SCH ×2 (09:00→21:28)
[2020-10-03] MEDS: risperiDONE 1 MG TAB PO SCH ×2 (09:00→21:28)
[2020-10-03] MEDS: amLODIPine 5 MG TAB PO SCH (09:00)
[2020-10-03] MEDS: DIVALPROEX DR 500 MG TAB PO SCH ×3 (09:58→21:28)
[2020-10-03] MEDS ORDERED: WATER FOR INJ Sterile (PF) 10 ML ONE (13:49)
[2020-10-03] MEDS: ZIPRASIDONE MESYLATE 20 MG VIAL IM PRN (13:50)
[2020-10-04] MEDS: INSULIN LISPRO 100 UNIT/ML SUB-Q SCH ×4 (07:35→21:49)
--- NOTE | 2020-10-04 07:44 | Progress Note ---
Subjective Date of service: 10/04/20 Principal diagnosis: Acute psychosis Subjective Comment: 09/29/2020: The patient was seen today, she is delusional. She is talking loudly to herself. Her thoughts are disorganized, but she's much more calm and cooperative today than yesterday. 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 She denies SI/HI. 09/30/2020: I interviewed the patient this morning. Medical records reviewed and patient's progress was discussed with unit staff. Nursing staff reports that "last evening the patient's mood was labile. She threatened and yelled at the other patients until they were frightened. She is difficult to redirect. She was talking to herself. Her appetite is good but she refused all medications. At bedtime the patient began to act out by laying in the floor at times partially clothed. When redirected she would get into staffs faces in a threatening manner. Security was called to stand by while patient was given Geodon 20 mg IM. Overnight the Geodon was effective until around 6 am. She is now laying in the floor in her room partially clothed. She refuses to get up. She states she did not fall. Will continue to monitor patient for safety." In my interview with the patient this morning, the patient was seen in the activity room laughing inappropriately. Patient presents with disorganized thinking. When asked about her sleep, she states " I am seeing psych, I am seeing stars and my ." Patient covered her eyes with her hand. No changes to the treatment plan today. 10/01/2020: Patient was seen sitting on the floor in the activity room. Patient continue to be disorganized. I interviewed the patient this morning. Medical records reviewed and patient's progress was discussed with unit staff. Nursing staff reports that patient "Last evening the patient presented with labile mood and irritable affect. She instigated conflict with peers at every opportunity. She was difficult to redirect. Patient's behavior presents as attention seeking. Her appetite is good and she was medication compliant. There are two of her peers that are having difficulty with her behavior. She knows that and tends to focus on them. Last evening she reached out her hands to the back of a male peer's chair knowing that it would upset him. When she got a reaction from him she smiled. Staff is staying close to keep patient safe. She slept only 2 hours and was awake in the floor the rest of the night. Will continue to monitor p atient for safety." Changed Depakote DR from 250mg po TID to 500mg po BID. 10/02/2020: The patient was seen pacing the hallway. She continues to be disorganized and responding to internal stimuli. Per nurse "Last evening the patient walked in the hallway. She presents as psychotic aeb talking to herself and holding her arms into the air and making different shapes in the air. The patient will not keep clothing on below her waist. She has a longer shirt that she is wearing. Staff has attempted to assist her with getting dressed in various ways to make it challenging to keep undressing. The patient figures out a way to continue to disrobe. She is attempting to go into a male peer's room. She refused snacks and when given fluids she throws them into the floor. She r efused all her medications. Multiple attempts to coax her into taking them were unsuccessful. Overnight the patient has walked the hallway. She has not slept any. She refuses to lay down or stay in her room. She presents as sleepy but keeps walking. She has talked to herself all night yelling out and cursing staff throughout the night. While observing her behavior of bending over staff noticed that the patient was wiping her vagina and rubbing it on the snell, doors, doorknobs, pictures, light fixtures and floors. Patient refuses to be redirected. She looks at staff, bends over wipes herself and wipes everything she can touch. This typewriter repairer walked the patient to her room to talk her into resting and she grabbed my ID badge and broke it. She then threw it into the restroom. Staff were able to get it from the patient. At this time the patient is in the shower. Staff is assisting her with bathing since she can not focus enough to bathe herself. Will continue to monitor patient for safety." Continue Geodon 20mg IM every 6 hours for agitation. 10/03/2020: The patient was seen in her room naked. The patient continues to be confused and responding to internal stimuli. Per nurse, "Pt in and out of other patients, laying on the floor, walking around with no bottoms, constantly being redirected, PRN Geodon given, pt slept for about 6 hours, the gout up turning on the emergency bathroom light, pt requiring constant redirection, will continue to monitor." Changes to the treatment plan: Start Risperidone 1mg po BID, Depakote 500mg po TID. 10/04/2020: The Patient was seen eating breakfast in the activity room. The patient continues to be disorganized. "She reports I'm feeling good, these are family." When asked about sleep, she states " I was flying but he told me to get off. " Per nurse, " pt spent the evening sitting on the floor, she got up after a lot encouragement, she was pacing the hallway without bottom, required const ant redirections, pt is disorganized and psychotic, responds to internal stimuli, talks to herself, refused snack, but had a cup of orange, and glycerna, medication compliant, slept for approximately 4hrs, no distress noted, will continue to monitor for safety." REVIEW OF SYSTEMS Constitutional: Negative for weight loss ENT: Negative for stridor Respiratory: Negative for cough or hemoptysis All other systems reviewed and are negative MENTAL STATUS EXAMINATION General Appearance and Behavior: Age appropriate, wearing appropriate clothes, cooperative polite with questioning, good eye contact. Cooperation: cooperative, guarded Psychomotor Behavior: Psychomotor normal Mood: "good" Affect and affective range: Flat Thought Process: illogical, disorganized, responding to internal stimuli Thought Content: hallucinations Speech: Normal volume, Regular rate and rhythm Suicidal Ideation:unable to assess Homicidal Ideation: unable to assess hallucination: yes Delusions: yes Impulse Control: Intact Insight and Judgment: poor Memory: abnormal Attention: Distractible Orientation: Alert and oriented to self Diagnoses: Schizophrenia Treatment Plan Patient admitted for inpatient psychiatric evaluation, medication adjustment and close monitoring The patient's behavior, mood, sleep and appetite will be closely monitored. Patient enrolled in individual and group therapeutic sessions and encouraged to attend. Patient provided with a safe and structured environment. Patient's physical health needs will be addressed by the Hospitalist. Hospitalist Consulted Labs including CBC, CMP, Lipid profile and Hemoglobin A1C levels ordered for baseline reference Social Assessment will be completed and the Injection Molding Process Technician will work with patient and family to ensure a suitable and safe disposition Medication adjustment will be made as clinically indicated Start Risperidone 1mg po BID Start Depakote DR 500mg po TID-Liquid form Start Risperidone 2 mg po BID- Liquid form Continue Trazodone 100mg po qhs Usual Wellness [facility]/Preservation: - Start Trazodone 50 mg po QHS & 50 mg po QHS PRN between 10 PM & 2 AM for insomnia - Start Melatonin 5 mg po QHS to promote circadian rhythm The patient agreed on the treatment plan, understood the risk, benefit, alternative treatment, potential consequence of no treatment, and gave informed consent. Estimated days: 4 Post hospital care: primary care provider, psychiatric provider Case staffed with Dr. Browne Medications and Allergies Allergies Allergy/AdvReac Type Severity Reaction Status Date / Time No Known Allergies Allergy Verified 09/26/20 22:27 Home Medications Medication Instructions Recorded Confirmed Last Taken Type Divalproex Dr [DepMichael DR] 125 mg PO BID 09/28/20 09/28/20 Unknown History OLANzapine [ZyPREXA] 2.5 mg PO QDAY 09/28/20 09/28/20 Unknown History Active Meds: Active Medications Amlodipine Besylate (Amlodipine 5 Mg Tab) 5 mg PO QDAY [facility] Last Admin: 10/03/20 09:00 Dose: 5 mg Documented by: Insulin Human Lispro (Insulin Lispro 100 Unit/Ml) 0 unit SUB-Q ACHS [facility]; Protocol Last Admin: 10/04/20 07:35 Dose: Not Given Documented by: Nitrofurantoin Macrocrystals (Nitrofurantoin Monohyd/M-Cryst 100 Mg Cap) 100 mg PO BID [facility] Stop: 10/05/20 06:00 Last Admin: 10/03/20 21:28 Dose: 100 mg Documented by: Risperidone (Risperidone 1 Mg Tab) 1 mg PO BID [facility] Last Admin: 10/03/20 21:28 Dose: 1 mg Documented by: Risperidone (Risperidone 1 Mg/1 Ml Oral Liqd) 2 mg PO BID [facility] Valproic Acid (Valproic Acid 250 Mg/5 Ml Oral Liqd) 500 mg PO TID [facility] Ziprasidone (Ziprasidone Mesylate 20 Mg Vial) 20 mg IM Q6H PRN PRN Reason: Agitation Last Admin: 10/03/20 13:50 Dose: 20 mg Documented by: Results - Results Labs/Vitals: Laboratory Last Values WBC 11.1 K/mm3 (4.5-11.0) H 09/29/20 07:17 RBC 4.42 M/mm3 (3.65-5.03) 09/29/20 07:17 Hgb 12.4 gm/dl (10.1-14.3) 09/29/20 07:17 Hct 38.3 % (30.3-42.9) 09/29/20 07:17 MCV 87 fl (79-97) 09/29/20 07:17 MCH 28 pg (28-32) 09/29/20 07:17 MCHC 32 % (30-34) 09/29/20 07:17 RDW 13.9 % (13.2-15.2) 09/29/20 07:17 Plt Count 339 K/mm3 (140-440) 09/29/20 07:17 Lymph % (Auto) 35.3 % (13.4-35.0) H 09/29/20 07:17 [place] % (Auto) 12.9 % (0.0-7.3) H 09/29/20 07:17 Eos % (Auto) 0.5 % (0.0-4.3) 09/29/20 07:17 Baso % (Auto) 0.7 % (0.0-1.8) 09/29/20 07:17 Lymph # (Auto) 3.9 K/mm3 (1.2-5.4) 09/29/20 07:17 [place] # (Auto) 1.4 K/mm3 (0.0-0.8) H 09/29/20 07:17 Eos # (Auto) 0.1 K/mm3 (0.0-0.4) 09/29/20 07:17 Baso # (Auto) 0.1 K/mm3 (0.0-0.1) 09/29/20 07:17 Seg Neutrophils % 50.6 % (40.0-70.0) 09/29/20 07:17 Seg Neutrophils # 5.6 K/mm3 (1.8-7.7) 09/29/20 07:17 Sodium 141 mmol/L (137-145) 09/29/20 07:17 Potassium 3.5 mmol/L (3.6-5.0) L 09/29/20 07:17 Chloride 101.1 mmol/L (98-107) 09/29/20 07:17 Carbon Dioxide 25 mmol/L (22-30) 09/29/20 07:17 Anion Gap 18 mmol/L 09/29/20 07:17 BUN 49 mg/dL (7-17) H 09/29/20 07:17 Creatinine 1.2 mg/dL (0.6-1.2) 09/29/20 07:17 Estimated GFR 57 ml/min 09/29/20 07:17 BUN/Creatinine Ratio 41 % 09/29/20 07:17 Glucose 156 mg/dL (65-100) H 09/29/20 07:17 POC Glucose 130 mg/dL (70-105) H 10/04/20 06:05 Hemoglobin A1c 7.4 % (4-6) H 09/29/20 07:17 Calcium 10.6 mg/dL (8.4-10.2) H 09/29/20 07:17 Total Bilirubin 0.60 mg/dL (0.1-1.2) 09/29/20 07:17 AST 31 units/L (5-40) 09/29/20 07:17 ALT 28 units/L (7-56) 09/29/20 07:17 Alkaline Phosphatase 107 units/L (35-129) 09/29/20 07:17 Total Protein 8.1 g/dL (6.3-8.2) 09/29/20 07:17 Albumin 4.6 g/dL (3.9-5) 09/29/20 07:17 Albumin/Globulin Ratio 1.3 % 09/29/20 07:17 Triglycerides 165 mg/dL (2-149) H 09/29/20 07:17 Cholesterol 214 mg/dL (50-199) H 09/29/20 07:17 LDL Cholesterol Direct 161 mg/dL (50-130) H 09/29/20 07:17 HDL Cholesterol 31 mg/dL (40-59) L 09/29/20 07:17 Cholesterol/HDL Ratio 6.90 % 09/29/20 07:17 TSH 0.972 mlU/mL (0.270-4.200) 09/29/20 07:17 Last Vital Signs Temp 98.6 F 10/03/20 20:01 Pulse 95 H 10/03/20 20:01 Resp 18 10/03/20 20:01 BP 120/102 10/03/20 20:01 Pulse Ox 96 10/03/20 20:01
[2020-10-04] MEDS: VALPROIC ACID 250 MG/5 ML ORAL LIQD PO SCH ×3 (08:16→21:49)
[2020-10-04] MEDS: amLODIPine 5 MG TAB PO SCH (12:02)
[2020-10-04] MEDS: risperiDONE 1 MG/1 ML ORAL LIQD PO SCH ×2 (12:03→21:50)
[2020-10-04] MEDS: NITROFURANTOIN MONOHYD/M-CRYST 100 MG CAP PO SCH ×2 (12:03→21:50)
[2020-10-04] MEDS: CLOTRIMAZOLE 1% CREAM 15 GM TP SCH ×2 (12:07→21:49)
[2020-10-04] MEDS ORDERED: WATER FOR INJ Sterile (PF) 10 ML ONE (22:04)
[2020-10-04] MEDS: ZIPRASIDONE MESYLATE 20 MG VIAL IM PRN (22:54)
[2020-10-05] MEDS: INSULIN LISPRO 100 UNIT/ML SUB-Q SCH ×4 (08:00→21:12)
--- NOTE | 2020-10-05 08:03 | Progress Note ---
Subjective Date of service: 10/05/20 Principal diagnosis: Acute psychosis Subjective Comment: 09/29/2020: The patient was seen today, she is delusional. She is talking loudly to herself. Her thoughts are disorganized, but she's much more calm and cooperative today than yesterday. 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 She denies SI/HI. 09/30/2020: I interviewed the patient this morning. Medical records reviewed and patient's progress was discussed with unit staff. Nursing staff reports that "last evening the patient's mood was labile. She threatened and yelled at the other patients until they were frightened. She is difficult to redirect. She was talking to herself. Her appetite is good but she refused all medications. At bedtime the patient began to act out by laying in the floor at times partially clothed. When redirected she would get into staffs faces in a threatening manner. Security was called to stand by while patient was given Geodon 20 mg IM. Overnight the Geodon was effective until around 6 am. She is now laying in the floor in her room partially clothed. She refuses to get up. She states she did not fall. Will continue to monitor patient for safety." In my interview with the patient this morning, the patient was seen in the activity room laughing inappropriately. Patient presents with disorganized thinking. When asked about her sleep, she states " I am seeing psych, I am seeing stars and my ." Patient covered her eyes with her hand. No changes to the treatment plan today. 10/01/2020: Patient was seen sitting on the floor in the activity room. Patient continue to be disorganized. I interviewed the patient this morning. Medical records reviewed and patient's progress was discussed with unit staff. Nursing staff reports that patient "Last evening the patient presented with labile mood and irritable affect. She instigated conflict with peers at every opportunity. She was difficult to redirect. Patient's behavior presents as attention seeking. Her appetite is good and she was medication compliant. There are two of her peers that are having difficulty with her behavior. She knows that and tends to focus on them. Last evening she reached out her hands to the back of a male peer's chair knowing that it would upset him. When she got a reaction from him she smiled. Staff is staying close to keep patient safe. She slept only 2 hours and was awake in the floor the rest of the night. Will continue to monitor p atient for safety." Changed Depakote DR from 250mg po TID to 500mg po BID. 10/02/2020: The patient was seen pacing the hallway. She continues to be disorganized and responding to internal stimuli. Per nurse "Last evening the patient walked in the hallway. She presents as psychotic aeb talking to herself and holding her arms into the air and making different shapes in the air. The patient will not keep clothing on below her waist. She has a longer shirt that she is wearing. Staff has attempted to assist her with getting dressed in various ways to make it challenging to keep undressing. The patient figures out a way to continue to disrobe. She is attempting to go into a male peer's room. She refused snacks and when given fluids she throws them into the floor. She r efused all her medications. Multiple attempts to coax her into taking them were unsuccessful. Overnight the patient has walked the hallway. She has not slept any. She refuses to lay down or stay in her room. She presents as sleepy but keeps walking. She has talked to herself all night yelling out and cursing staff throughout the night. While observing her behavior of bending over staff noticed that the patient was wiping her vagina and rubbing it on the snell, doors, doorknobs, pictures, light fixtures and floors. Patient refuses to be redirected. She looks at staff, bends over wipes herself and wipes everything she can touch. This tag writer walked the patient to her room to talk her into resting and she grabbed my ID badge and broke it. She then threw it into the restroom. Staff were able to get it from the patient. At this time the patient is in the shower. Staff is assisting her with bathing since she can not focus enough to bathe herself. Will continue to monitor patient for safety." Continue Geodon 20mg IM every 6 hours for agitation. 10/03/2020: The patient was seen in her room naked. The patient continues to be confused and responding to internal stimuli. Per nurse, "Pt in and out of other patients, laying on the floor, walking around with no bottoms, constantly being redirected, PRN Geodon given, pt slept for about 6 hours, the gout up turning on the emergency bathroom light, pt requiring constant redirection, will continue to monitor." Changes to the treatment plan: Start Risperidone 1mg po BID, Depakote 500mg po TID. 10/04/2020: The Patient was seen eating breakfast in the activity room. The patient continues to be disorganized. "She reports I'm feeling good, these are family." When asked about sleep, she states " I was flying but he told me to get off. " Per nurse, " pt spent the evening sitting on the floor, she got up after a lot encouragement, she was pacing the hallway without bottom, required const ant redirections, pt is disorganized and psychotic, responds to internal stimuli, talks to herself, refused snack, but had a cup of orange, and glycerna, medication compliant, slept for approximately 4hrs, no distress noted, will continue to monitor for safety." 10/05/2020: The patient was seen this morning pacing. The patient continues to be disorganized. Per nurse, the patient is non compliant with medication. Changes to treatment plan: Start Geodon 20mg po BID/ Give IM if patient refuse Po. REVIEW OF SYSTEMS Constitutional: Negative for weight loss ENT: Negative for stridor Respiratory: Negative for cough or hemoptysis All other systems reviewed and are negative MENTAL STATUS EXAMINATION General Appearance and Behavior: Age appropriate, wearing appropriate clothes, cooperative polite with questioning, good eye contact. Cooperation: cooperative, guarded Psychomotor Behavior: Psychomotor normal Mood: "ok" Affect and affective range: Flat Thought Process: illogical, disorganized, responding to internal stimuli Thought Content: hallucinations Speech: Normal volume, Regular rate and rhythm Suicidal Ideation:unable to assess Homicidal Ideation: unable to assess hallucination: yes Delusions: yes Impulse Control: Intact Insight and Judgment: poor Memory: abnormal Attention: Distractible Orientation: Alert and oriented to self Diagnoses: Schizophrenia Treatment Plan Patient admitted for inpatient psychiatric evaluation, medication adjustment and close monitoring The patient's behavior, mood, sleep and appetite will be closely monitored. Patient enrolled in individual and group therapeutic sessions and encouraged to attend. Patient provided with a safe and structured environment. Patient's physical health needs will be addressed by the Hospitalist. Hospitalist Consulted Labs including CBC, CMP, Lipid profile and Hemoglobin A1C levels ordered for baseline reference Social Assessment will be completed and the Manager Case Management will work with patient and family to ensure a suitable and safe disposition Medication adjustment will be made as clinically indicated Start Risperidone 1mg po BID Start Geodon 20mg po BID- Please give IM if patient refuse Po. continue Isaac DR 500mg po TID-Liquid form Continue Trazodone 100mg po qhs Usual Wellness [facility]/Preservation: - Start Trazodone 50 mg po QHS & 50 mg po QHS PRN between 10 PM & 2 AM for insomnia - Start Melatonin 5 mg po QHS to promote circadian rhythm The patient agreed on the treatment plan, understood the risk, benefit, alternative treatment, potential consequence of no treatment, and gave informed consent. Estimated days: 4 Post hospital care: primary care provider, psychiatric provider Case staffed with Dr. Browne Medications and Allergies Medications and Allergies Allergies Allergy/AdvReac Type Severity Reaction Status Date / Time No Known Allergies Allergy Verified 09/26/20 22:27 Home Medications Medication Instructions Recorded Confirmed Last Taken Type Divalproex Dr [Isaac BARAJAS] 125 mg PO BID 09/28/20 09/28/20 Unknown History OLANzapine [ZyPREXA] 2.5 mg PO QDAY 09/28/20 09/28/20 Unknown History Active Meds: Active Medications Amlodipine Besylate (Amlodipine 5 Mg Tab) 5 mg PO QDAY [facility] Last Admin: 10/04/20 12:02 Dose: 5 mg Documented by: Clotrimazole (Clotrimazole 1% Cream 15 Gm) 1 applic TP BID [facility] Last Admin: 10/04/20 21:49 Dose: Not Given Documented by: Insulin Human Lispro (Insulin Lispro 100 Unit/Ml) 0 unit SUB-Q [facility]; Protocol Last Admin: 10/04/20 21:49 Dose: Not Given Documented by: Risperidone (Risperidone 1 Mg/1 Ml Oral Liqd) 2 mg PO BID [facility] Last Admin: 10/04/20 21:50 Dose: Not Given Documented by: Valproic Acid (Valproic Acid 250 Mg/5 Ml Oral Liqd) 500 mg PO TID [facility] Last Admin: 10/04/20 21:49 Dose: Not Given Documented by: Ziprasidone (Ziprasidone Mesylate 20 Mg Vial) 20 mg IM Q6H PRN PRN Reason: Agitation Last Admin: 10/04/20 22:54 Dose: 20 mg Documented by: Results - Results Labs/Vitals: Laboratory Last Values WBC 11.1 K/mm3 (4.5-11.0) H 09/29/20 07:17 RBC 4.42 M/mm3 (3.65-5.03) 09/29/20 07:17 Hgb 12.4 gm/dl (10.1-14.3) 09/29/20 07:17 Hct 38.3 % (30.3-42.9) 09/29/20 07:17 MCV 87 fl (79-97) 09/29/20 07:17 MCH 28 pg (28-32) 09/29/20 07:17 MCHC 32 % (30-34) 09/29/20 07:17 RDW 13.9 % (13.2-15.2) 09/29/20 07:17 Plt Count 339 K/mm3 (140-440) 09/29/20 07:17 Lymph % (Auto) 35.3 % (13.4-35.0) H 09/29/20 07:17 [place] % (Auto) 12.9 % (0.0-7.3) H 09/29/20 07:17 Eos % (Auto) 0.5 % (0.0-4.3) 09/29/20 07:17 Baso % (Auto) 0.7 % (0.0-1.8) 09/29/20 07:17 Lymph # (Auto) 3.9 K/mm3 (1.2-5.4) 09/29/20 07:17 [place] # (Auto) 1.4 K/mm3 (0.0-0.8) H 09/29/20 07:17 Eos # (Auto) 0.1 K/mm3 (0.0-0.4) 09/29/20 07:17 Baso # (Auto) 0.1 K/mm3 (0.0-0.1) 09/29/20 07:17 Seg Neutrophils % 50.6 % (40.0-70.0) 09/29/20 07:17 Seg Neutrophils # 5.6 K/mm3 (1.8-7.7) 09/29/20 07:17 Sodium 141 mmol/L (137-145) 09/29/20 07:17 Potassium 3.5 mmol/L (3.6-5.0) L 09/29/20 07:17 Chloride 101.1 mmol/L (98-107) 09/29/20 07:17 Carbon Dioxide 25 mmol/L (22-30) 09/29/20 07:17 Anion Gap 18 mmol/L 09/29/20 07:17 BUN 49 mg/dL (7-17) H 09/29/20 07:17 Creatinine 1.2 mg/dL (0.6-1.2) 09/29/20 07:17 Estimated GFR 57 ml/min 09/29/20 07:17 BUN/Creatinine Ratio 41 % 09/29/20 07:17 Glucose 156 mg/dL (65-100) H 09/29/20 07:17 POC Glucose 173 mg/dL (70-105) H 10/05/20 07:26 Hemoglobin A1c 7.4 % (4-6) H 09/29/20 07:17 Calcium 10.6 mg/dL (8.4-10.2) H 09/29/20 07:17 Total Bilirubin 0.60 mg/dL (0.1-1.2) 09/29/20 07:17 AST 31 units/L (5-40) 09/29/20 07:17 ALT 28 units/L (7-56) 09/29/20 07:17 Alkaline Phosphatase 107 units/L (35-129) 09/29/20 07:17 Total Protein 8.1 g/dL (6.3-8.2) 09/29/20 07:17 Albumin 4.6 g/dL (3.9-5) 09/29/20 07:17 Albumin/Globulin Ratio 1.3 % 09/29/20 07:17 Triglycerides 165 mg/dL (2-149) H 09/29/20 07:17 Cholesterol 214 mg/dL (50-199) H 09/29/20 07:17 LDL Cholesterol Direct 161 mg/dL (50-130) H 09/29/20 07:17 HDL Cholesterol 31 mg/dL (40-59) L 09/29/20 07:17 Cholesterol/HDL Ratio 6.90 % 09/29/20 07:17 TSH 0.972 mlU/mL (0.270-4.200) 09/29/20 07:17 Last Vital Signs Temp 98.0 F 10/04/20 07:43 Pulse 99 H 10/04/20 07:43 Resp 16 10/04/20 07:43 BP 129/76 10/04/20 07:43 Pulse Ox 94 10/04/20 07:43
--- NOTE | 2020-10-05 08:15 | Event Note ---
Date: 10/05/20 The patient 's son (Fito Painter) was informed that patient is noncompliant with medication and the plan is to start administering IM injections whenever she refuses to take medication by mouth. The patient's son is receptive with the treatment plan. He states that the patient was receiving a monthly HINTON however, he is sure which HINTON she was on.
[2020-10-05] MEDS: ZIPRASIDONE 20 MG CAP PO SCH ×2 (09:37→21:09)
[2020-10-05] MEDS: VALPROIC ACID 250 MG/5 ML ORAL LIQD PO SCH ×4 (09:37→21:10)
[2020-10-05] MEDS: risperiDONE 1 MG/1 ML ORAL LIQD PO SCH ×2 (10:00→21:10)
[2020-10-05] MEDS: amLODIPine 5 MG TAB PO SCH (10:00)
[2020-10-05] MEDS: ZIPRASIDONE MESYLATE 20 MG VIAL IM SCH ×2 (10:15→21:12)
[2020-10-05] MEDS: CLOTRIMAZOLE 1% CREAM 15 GM TP SCH ×2 (10:33→21:14)
[2020-10-06] MEDS: INSULIN LISPRO 100 UNIT/ML SUB-Q SCH ×3 (08:27→16:16)
[2020-10-06] MEDS: VALPROIC ACID 250 MG/5 ML ORAL LIQD PO SCH ×2 (08:38→13:19)
--- NOTE | 2020-10-06 08:47 | Progress Note ---
Subjective Date of service: 10/06/20 Principal diagnosis: Acute psychosis Subjective Comment: 09/29/2020: The patient was seen today, she is delusional. She is talking loudly to herself. Her thoughts are disorganized, but she's much more calm and cooperative today than yesterday. She tells me "I am a computerized table cutter and I can see under the table." She has a napkin in he hand and states "this is a snake." She then says "naw, I have medicine in here." There is nothing in the napkin. She denies SI/HI. 09/30/2020: I interviewed the patient this morning. Medical records reviewed and patient's progress was discussed with unit staff. Nursing staff reports that "last evening the patient's mood was labile. She threatened and yelled at the other patients until they were frightened. She is difficult to redirect. She was talking to herself. Her appetite is good but she refused all medications. At bedtime the patient began to act out by laying in the floor at times partially clothed. When redirected she would get into staffs faces in a threatening manner. Security was called to stand by while patient was given Geodon 20 mg IM. Overnight the Geodon was effective until around 6 am. She is now laying in the floor in her room partially clothed. She refuses to get up. She states she did not fall. Will continue to monitor patient for safety." In my interview with the patient this morning, the patient was seen in the activity room laughing inappropriately. Patient presents with disorganized thinking. When asked about her sleep, she states " I am seeing psych, I am seeing stars and my ." Patient covered her eyes with her hand. No changes to the treatment plan today. 10/01/2020: Patient was seen sitting on the floor in the activity room. Patient continue to be disorganized. I interviewed the patient this morning. Medical records reviewed and patient's progress was discussed with unit staff. Nursing staff reports that patient "Last evening the patient presented with labile mood and irritable affect. She instigated conflict with peers at every opportunity. She was difficult to redirect. Patient's behavior presents as attention seeking. Her appetite is good and she was medication compliant. There are two of her peers that are having difficulty with her behavior. She knows that and tends to focus on them. Last evening she reached out her hands to the back of a male peer's chair knowing that it would upset him. When she got a reaction from him she smiled. Staff is staying close to keep patient safe. She slept only 2 hours and was awake in the floor the rest of the night. Will continue to monitor p atient for safety." Changed Depakote DR from 250mg po TID to 500mg po BID. 10/02/2020: The patient was seen pacing the hallway. She continues to be disorganized and responding to internal stimuli. Per nurse "Last evening the patient walked in the hallway. She presents as psychotic aeb talking to herself and holding her arms into the air and making different shapes in the air. The patient will not keep clothing on below her waist. She has a longer shirt that she is wearing. Staff has attempted to assist her with getting dressed in various ways to make it challenging to keep undressing. The patient figures out a way to continue to disrobe. She is attempting to go into a male peer's room. She refused snacks and when given fluids she throws them into the floor. She r efused all her medications. Multiple attempts to coax her into taking them were unsuccessful. Overnight the patient has walked the hallway. She has not slept any. She refuses to lay down or stay in her room. She presents as sleepy but keeps walking. She has talked to herself all night yelling out and cursing staff throughout the night. While observing her behavior of bending over staff noticed that the patient was wiping her vagina and rubbing it on the snell, doors, doorknobs, pictures, light fixtures and floors. Patient refuses to be redirected. She looks at staff, bends over wipes herself and wipes everything she can touch. This commercial underwriter walked the patient to her room to talk her into resting and she grabbed my ID badge and broke it. She then threw it into the restroom. Staff were able to get it from the patient. At this time the patient is in the shower. Staff is assisting her with bathing since she can not focus enough to bathe herself. Will continue to monitor patient for safety." Continue Geodon 20mg IM every 6 hours for agitation. 10/03/2020: The patient was seen in her room naked. The patient continues to be confused and responding to internal stimuli. Per nurse, "Pt in and out of other patients, laying on the floor, walking around with no bottoms, constantly being redirected, PRN Geodon given, pt slept for about 6 hours, the gout up turning on the emergency bathroom light, pt requiring constant redirection, will continue to monitor." Changes to the treatment plan: Start Risperidone 1mg po BID, Depakote 500mg po TID. 10/04/2020: The Patient was seen eating breakfast in the activity room. The patient continues to be disorganized. "She reports I'm feeling good, these are family." When asked about sleep, she states " I was flying but he told me to get off. " Per nurse, " pt spent the evening sitting on the floor, she got up after a lot encouragement, she was pacing the hallway without bottom, required const ant redirections, pt is disorganized and psychotic, responds to internal stimuli, talks to herself, refused snack, but had a cup of orange, and glycerna, medication compliant, slept for approximately 4hrs, no distress noted, will continue to monitor for safety." 10/05/2020: The patient was seen this morning pacing. The patient continues to be disorganized. Per nurse, the patient is non compliant with medication. Changes to treatment plan: Start Geodon 20mg po BID/ Give IM if patient refuse Po. 10/06/2020: The patient was in the activity room isolative and calm. She continues to be confused. She states he sleep was good. The patient was requesting for her glasses. Per nurse,"pt is disorganized, paces the hallway, responding to internal stimuli, took geodon and risperdal at bedtime, slept all night, no distress noted, will continue to monitor for safety." REVIEW OF SYSTEMS Constitutional: Negative for weight loss ENT: Negative for stridor Respiratory: Negative for cough or hemoptysis All other systems reviewed and are negative MENTAL STATUS EXAMINATION General Appearance and Behavior: Age appropriate, wearing appropriate clothes, cooperative polite with questioning, good eye contact. Cooperation: cooperative, guarded Psychomotor Behavior: Psychomotor normal Mood: "ok" Affect and affective range: Flat Thought Process: illogical, disorganized, responding to internal stimuli Thought Content: hallucinations Speech: Normal volume, Regular rate and rhythm Suicidal Ideation:unable to assess Homicidal Ideation: unable to assess hallucination: yes Delusions: yes Impulse Control: Intact Insight and Judgment: poor Memory: abnormal Attention: Distractible Orientation: Alert and oriented to self Diagnoses: Schizophrenia Treatment Plan Patient admitted for inpatient psychiatric evaluation, medication adjustment and close monitoring The patient's behavior, mood, sleep and appetite will be closely monitored. Patient enrolled in individual and group therapeutic sessions and encouraged to attend. Patient provided with a safe and structured environment. Patient's physical health needs will be addressed by the Hospitalist. Hospitalist Consulted Labs including CBC, CMP, Lipid profile and Hemoglobin A1C levels ordered for baseline reference Social Assessment will be completed and the Drum Sander Offbearer will work with patient and family to ensure a suitable and safe disposition Medication adjustment will be made as clinically indicated Start Risperidone 1mg po BID Continue Geodon 20mg po BID- Please give IM if patient refuse Po. continue Depakote DR 500mg po TID-Liquid form continue Risperdal 2mg po BID.- Liquid form Continue Trazodone 100mg po qhs Usual Wellness Taoism/Preservation: - Start Trazodone 50 mg po QHS & 50 mg po QHS PRN between 10 PM & 2 AM for i nsomnia - Start Melatonin 5 mg po QHS to promote circadian rhythm The patient agreed on the treatment plan, understood the risk, benefit, alternative treatment, potential consequence of no treatment, and gave informed consent. Estimated days: 4 Post hospital care: primary care provider, psychiatric provider Case staffed with Dr. Browne Medications and Allergies Medications and Allergies Allergies Allergy/AdvReac Type Severity Reaction Status Date / Time No Known Allergies Allergy Verified 09/26/20 22:27 Home Medications Medication Instructions Recorded Confirmed Last Taken Type Divalproex Dr [DepaKOTE DR] 125 mg PO BID 09/28/20 09/28/20 Unknown History OLANzapine [ZyPREXA] 2.5 mg PO QDAY 09/28/20 09/28/20 Unknown History Active Meds: Active Medications Amlodipine Besylate (Amlodipine 5 Mg Tab) 5 mg PO QDAY [facility] Last Admin: 10/05/20 10:00 Dose: Not Given Documented by: Clotrimazole (Clotrimazole 1% Cream 15 Gm) 1 applic TP BID [facility] Last Admin: 10/05/20 21:14 Dose: 1 applic Documented by: Insulin Human Lispro (Insulin Lispro 100 Unit/Ml) 0 unit SUB-Q ACHS [facility]; Protocol Last Admin: 10/06/20 08:27 Dose: Not Given Documented by: Risperidone (Risperidone 1 Mg/1 Ml Oral Liqd) 2 mg PO BID [facility] Last Admin: 10/05/20 21:10 Dose: 2 mg Documented by: Valproic Acid (Valproic Acid 250 Mg/5 Ml Oral Liqd) 500 mg PO TID [facility] Last Admin: 10/05/20 21:10 Dose: Not Given Documented by: Ziprasidone (Ziprasidone Mesylate 20 Mg Vial) 20 mg IM BID [facility] Last Admin: 10/05/20 21:12 Dose: Not Given Documented by: Ziprasidone (Ziprasidone 20 Mg Cap) 20 mg PO BID [facility] Last Admin: 10/05/20 21:09 Dose: 20 mg Documented by: Results - Results Labs/Vitals: Laboratory Last Values WBC 11.1 K/mm3 (4.5-11.0) H 09/29/20 07:17 RBC 4.42 M/mm3 (3.65-5.03) 09/29/20 07:17 Hgb 12.4 gm/dl (10.1-14.3) 09/29/20 07:17 Hct 38.3 % (30.3-42.9) 09/29/20 07:17 MCV 87 fl (79-97) 09/29/20 07:17 MCH 28 pg (28-32) 09/29/20 07:17 MCHC 32 % (30-34) 09/29/20 07:17 RDW 13.9 % (13.2-15.2) 09/29/20 07:17 Plt Count 339 K/mm3 (140-440) 09/29/20 07:17 Lymph % (Auto) 35.3 % (13.4-35.0) H 09/29/20 07:17 [place] % (Auto) 12.9 % (0.0-7.3) H 09/29/20 07:17 Eos % (Auto) 0.5 % (0.0-4.3) 09/29/20 07:17 Baso % (Auto) 0.7 % (0.0-1.8) 09/29/20 07:17 Lymph # (Auto) 3.9 K/mm3 (1.2-5.4) 09/29/20 07:17 [place] # (Auto) 1.4 K/mm3 (0.0-0.8) H 09/29/20 07:17 Eos # (Auto) 0.1 K/mm3 (0.0-0.4) 09/29/20 07:17 Baso # (Auto) 0.1 K/mm3 (0.0-0.1) 09/29/20 07:17 Seg Neutrophils % 50.6 % (40.0-70.0) 09/29/20 07:17 Seg Neutrophils # 5.6 K/mm3 (1.8-7.7) 09/29/20 07:17 Sodium 141 mmol/L (137-145) 09/29/20 07:17 Potassium 3.5 mmol/L (3.6-5.0) L 09/29/20 07:17 Chloride 101.1 mmol/L (98-107) 09/29/20 07:17 Carbon Dioxide 25 mmol/L (22-30) 09/29/20 07:17 Anion Gap 18 mmol/L 09/29/20 07:17 BUN 49 mg/dL (7-17) H 09/29/20 07:17 Creatinine 1.2 mg/dL (0.6-1.2) 09/29/20 07:17 Estimated GFR 57 ml/min 09/29/20 07:17 BUN/Creatinine Ratio 41 % 09/29/20 07:17 Glucose 156 mg/dL (65-100) H 09/29/20 07:17 POC Glucose 93 mg/dL (70-105) 10/06/20 06:22 Hemoglobin A1c 7.4 % (4-6) H 09/29/20 07:17 Calcium 10.6 mg/dL (8.4-10.2) H 09/29/20 07:17 Total Bilirubin 0.60 mg/dL (0.1-1.2) 09/29/20 07:17 AST 31 units/L (5-40) 09/29/20 07:17 ALT 28 units/L (7-56) 09/29/20 07:17 Alkaline Phosphatase 107 units/L (35-129) 09/29/20 07:17 Total Protein 8.1 g/dL (6.3-8.2) 09/29/20 07:17 Albumin 4.6 g/dL (3.9-5) 09/29/20 07:17 Albumin/Globulin Ratio 1.3 % 09/29/20 07:17 Triglycerides 165 mg/dL (2-149) H 09/29/20 07:17 Cholesterol 214 mg/dL (50-199) H 09/29/20 07:17 LDL Cholesterol Direct 161 mg/dL (50-130) H 09/29/20 07:17 HDL Cholesterol 31 mg/dL (40-59) L 09/29/20 07:17 Cholesterol/HDL Ratio 6.90 % 09/29/20 07:17 TSH 0.972 mlU/mL (0.270-4.200) 09/29/20 07:17 Last Vital Signs Temp 98.4 F 10/05/20 19:52 Pulse 103 H 10/05/20 19:52 Resp 18 10/05/20 19:52 BP 117/71 10/05/20 19:52 Pulse Ox 97 10/05/20 19:52
[2020-10-06] MEDS: CLOTRIMAZOLE 1% CREAM 15 GM TP SCH ×2 (10:21→21:28)
[2020-10-06] MEDS: ZIPRASIDONE 20 MG CAP PO SCH ×2 (10:22→21:04)
[2020-10-06] MEDS: risperiDONE 1 MG/1 ML ORAL LIQD PO SCH (10:22)
[2020-10-06] MEDS: ZIPRASIDONE MESYLATE 20 MG VIAL IM SCH (10:23)
[2020-10-06] MEDS: amLODIPine 5 MG TAB PO SCH (10:27)
[2020-10-07] MEDS: ZIPRASIDONE MESYLATE 20 MG VIAL IM SCH ×3 (01:47→22:48)
[2020-10-07] MEDS: VALPROIC ACID 250 MG/5 ML ORAL LIQD PO SCH ×4 (07:37→21:11)
[2020-10-07] MEDS: INSULIN LISPRO 100 UNIT/ML SUB-Q SCH ×5 (07:50→21:14)
[2020-10-07] MEDS: risperiDONE 1 MG/1 ML ORAL LIQD PO SCH ×3 (07:51→21:18)
[2020-10-07] MEDS ORDERED: WATER FOR INJ Sterile (PF) 10 ML ONE (09:01)
[2020-10-07] MEDS: amLODIPine 5 MG TAB PO SCH (09:26)
[2020-10-07] MEDS: ZIPRASIDONE 20 MG CAP PO SCH ×2 (09:26→21:12)
[2020-10-07] MEDS: CLOTRIMAZOLE 1% CREAM 15 GM TP SCH ×2 (10:10→21:14)
--- NOTE | 2020-10-07 11:43 | Progress Note ---
Subjective Date of service: 10/07/20 Principal diagnosis: Acute psychosis Subjective Comment: The patient was seen today. She was more calm for me during this evaluation than previous ones. Although, the patient denies SI/HI or hallucinations of any kind, the nurse says the patient has been responding to internal stimuli, up all night and rolling around on the floor. Spoke with the patient's daughter, Idania. I explained the patients plan of care and discharge plans. She was also in agreement with the patient getting a long acting injection. She says her mother was on a monthly injection in 2017 for a few months but stopped taking it. Discussed the patient's need for continuous med management and frequent visits with psychiatrist on an outpatient basis. Reason for continued inpatient treatment: The patient continues to be psychotic. Will give long acting injection, and wean down other antipsychotics. REVIEW OF SYSTEMS Constitutional: Negative for weight loss ENT: Negative for stridor Respiratory: Negative for cough or hemoptysis All other systems reviewed and are negative MENTAL STATUS EXAMINATION General Appearance and Behavior: Age appropriate, wearing appropriate clothes, cooperative polite with questioning, good eye contact, argumentative, uncooperative, agitated Cooperation: uncooperative, guarded Psychomotor Behavior: Psychomotor normal Mood: Affect and affective range: congruent with stated mood Thought Process: illogical, disorganized, responding to internal stimuli Thought Content: hallucinations Speech: Normal volume, Regular rate and rhythm Suicidal Ideation: Denies Homicidal Ideation: Denies hallucination: Auditory Delusions: None elicited Impulse Control: Intact Insight and Judgment: Poor Memory: Intact Attention: Divided Orientation: Alert and oriented Diagnoses: Schizophrenia Treatment Plan Patient admitted for inpatient psychiatric evaluation, medication adjustment and close monitoring The patient's behavior, mood, sleep and appetite will be closely monitored. Patient enrolled in individual and group therapeutic sessions and encouraged to attend. Patient provided with a safe and structured environment. Patient's physical health needs will be addressed by the Hospitalist. Hospitalist Consulted Labs including CBC, CMP, Lipid profile and Hemoglobin A1C levels ordered for baseline reference Social Assessment will be completed and the Tile Erector will work with patient and family to ensure a suitable and safe disposition Medication adjustment will be made as clinically indicated Invega Sustenna 234mg IM x 1 to be given tomorrow morning. Usual Wellness Taoism/Preservation: - Start Trazodone 50 mg po QHS & 50 mg po QHS PRN between 10 PM & 2 AM for insomnia - Start Melatonin 5 mg po QHS to promote circadian rhythm The patient agreed on the treatment plan, understood the risk, benefit, alternative treatment, potential consequence of no treatment, and gave informed consent. Estimated days: 4 Post hospital care: primary care provider, psychiatric provider Case staffed with Dr. Browne Medications and Allergies Allergies Allergy/AdvReac Type Severity Reaction Status Date / Time No Known Allergies Allergy Verified 09/26/20 22:27 Home Medications Medication Instructions Recorded Confirmed Last Taken Type Divalproex Dr [Saniya BARAJAS] 125 mg PO BID 09/28/20 09/28/20 Unknown History OLANzapine [ZyPREXA] 2.5 mg PO QDAY 09/28/20 09/28/20 Unknown History Active Meds: Active Medications Amlodipine Besylate (Amlodipine 5 Mg Tab) 5 mg PO QDAY [facility] Last Admin: 10/07/20 09:26 Dose: 5 mg Documented by: Clotrimazole (Clotrimazole 1% Cream 15 Gm) 1 applic TP BID [facility] Last Admin: 10/07/20 10:10 Dose: 1 applic Documented by: Insulin Human Lispro (Insulin Lispro 100 Unit/Ml) 0 unit SUB-Q ACHS [facility]; Protocol Last Admin: 10/07/20 11:32 Dose: Not Given Documented by: Risperidone (Risperidone 1 Mg/1 Ml Oral Liqd) 2 mg PO BID [facility] Last Admin: 10/07/20 09:29 Dose: 2 mg Documented by: Valproic Acid (Valproic Acid 250 Mg/5 Ml Oral Liqd) 500 mg PO TID [facility] Last Admin: 10/07/20 08:08 Dose: Not Given Documented by: Ziprasidone (Ziprasidone Mesylate 20 Mg Vial) 20 mg IM BID [facility] Last Admin: 10/07/20 09:29 Dose: Not Given Documented by: Ziprasidone (Ziprasidone 20 Mg Cap) 20 mg PO BID [facility] Last Admin: 10/07/20 09:26 Dose: 20 mg Documented by: Results - Results Labs/Vitals: Laboratory Last Values WBC 11.1 K/mm3 (4.5-11.0) H 09/29/20 07:17 RBC 4.42 M/mm3 (3.65-5.03) 09/29/20 07:17 Hgb 12.4 gm/dl (10.1-14.3) 09/29/20 07:17 Hct 38.3 % (30.3-42.9) 09/29/20 07:17 MCV 87 fl (79-97) 09/29/20 07:17 MCH 28 pg (28-32) 09/29/20 07:17 MCHC 32 % (30-34) 09/29/20 07:17 RDW 13.9 % (13.2-15.2) 09/29/20 07:17 Plt Count 339 K/mm3 (140-440) 09/29/20 07:17 Lymph % (Auto) 35.3 % (13.4-35.0) H 09/29/20 07:17 [place] % (Auto) 12.9 % (0.0-7.3) H 09/29/20 07:17 Eos % (Auto) 0.5 % (0.0-4.3) 09/29/20 07:17 Baso % (Auto) 0.7 % (0.0-1.8) 09/29/20 07:17 Lymph # (Auto) 3.9 K/mm3 (1.2-5.4) 09/29/20 07:17 [place] # (Auto) 1.4 K/mm3 (0.0-0.8) H 09/29/20 07:17 Eos # (Auto) 0.1 K/mm3 (0.0-0.4) 09/29/20 07:17 Baso # (Auto) 0.1 K/mm3 (0.0-0.1) 09/29/20 07:17 Seg Neutrophils % 50.6 % (40.0-70.0) 09/29/20 07:17 Seg Neutrophils # 5.6 K/mm3 (1.8-7.7) 09/29/20 07:17 Sodium 141 mmol/L (137-145) 09/29/20 07:17 Potassium 3.5 mmol/L (3.6-5.0) L 09/29/20 07:17 Chloride 101.1 mmol/L (98-107) 09/29/20 07:17 Carbon Dioxide 25 mmol/L (22-30) 09/29/20 07:17 Anion Gap 18 mmol/L 09/29/20 07:17 BUN 49 mg/dL (7-17) H 09/29/20 07:17 Creatinine 1.2 mg/dL (0.6-1.2) 09/29/20 07:17 Estimated GFR 57 ml/min 09/29/20 07:17 BUN/Creatinine Ratio 41 % 09/29/20 07:17 Glucose 156 mg/dL (65-100) H 09/29/20 07:17 POC Glucose 154 mg/dL (70-105) H 10/07/20 06:14 Hemoglobin A1c 7.4 % (4-6) H 09/29/20 07:17 Calcium 10.6 mg/dL (8.4-10.2) H 09/29/20 07:17 Total Bilirubin 0.60 mg/dL (0.1-1.2) 09/29/20 07:17 AST 31 units/L (5-40) 09/29/20 07:17 ALT 28 units/L (7-56) 09/29/20 07:17 Alkaline Phosphatase 107 units/L (35-129) 09/29/20 07:17 Total Protein 8.1 g/dL (6.3-8.2) 09/29/20 07:17 Albumin 4.6 g/dL (3.9-5) 09/29/20 07:17 Albumin/Globulin Ratio 1.3 % 09/29/20 07:17 Triglycerides 165 mg/dL (2-149) H 09/29/20 07:17 Cholesterol 214 mg/dL (50-199) H 09/29/20 07:17 LDL Cholesterol Direct 161 mg/dL (50-130) H 09/29/20 07:17 HDL Cholesterol 31 mg/dL (40-59) L 09/29/20 07:17 Cholesterol/HDL Ratio 6.90 % 09/29/20 07:17 TSH 0.972 mlU/mL (0.270-4.200) 09/29/20 07:17 Last Vital Signs Temp 98.6 F 10/07/20 07:35 Pulse 86 10/07/20 09:26 Resp 20 10/07/20 07:35 BP 117/58 10/07/20 09:26 Pulse Ox 99 10/06/20 19:20
[2020-10-08] MEDS: INSULIN LISPRO 100 UNIT/ML SUB-Q SCH ×4 (08:51→21:16)
[2020-10-08] MEDS: VALPROIC ACID 250 MG/5 ML ORAL LIQD PO SCH ×3 (08:52→20:15)
[2020-10-08] MEDS: risperiDONE 1 MG/1 ML ORAL LIQD PO SCH ×2 (09:04→21:15)
[2020-10-08] MEDS: ZIPRASIDONE 20 MG CAP PO SCH ×2 (09:04→21:15)
[2020-10-08] MEDS: ZIPRASIDONE MESYLATE 20 MG VIAL IM SCH ×2 (09:05→21:16)
--- NOTE | 2020-10-08 09:05 | Progress Note ---
Subjective Date of service: 10/08/20 Principal diagnosis: Acute psychosis Subjective Comment: The patient was seen today. She is agitated. She is pacing and tells me to "get the f*ck away from her." The patient says she is going home and only came to this hospital to visit and states "next thing I know yall locked me up in here." She continues to pace and ask for her clothing while I'm trying to talk to her. Reason for continued inpatient treatment: The patient continues to be psychotic. Will give long acting injection, and wean down other antipsychotics. REVIEW OF SYSTEMS Constitutional: Negative for weight loss ENT: Negative for stridor Respiratory: Negative for cough or hemoptysis All other systems reviewed and are negative MENTAL STATUS EXAMINATION General Appearance and Behavior: Age appropriate, wearing appropriate clothes, cooperative polite with questioning, good eye contact, argumentative, uncooperative, agitated Cooperation: uncooperative, guarded Psychomotor Behavior: Psychomotor normal Mood: Affect and affective range: congruent with stated mood Thought Process: illogical, disorganized, responding to internal stimuli Thought Content: hallucinations Speech: Normal volume, Regular rate and rhythm Suicidal Ideation: Denies Homicidal Ideation: Denies hallucination: Auditory Delusions: None elicited Impulse Control: Intact Insight and Judgment: Poor Memory: Intact Attention: Divided Orientation: Alert and oriented Diagnoses: Schizophrenia Treatment Plan Patient admitted for inpatient psychiatric evaluation, medication adjustment and close monitoring The patient's behavior, mood, sleep and appetite will be closely monitored. Patient enrolled in individual and group therapeutic sessions and encouraged to attend. Patient provided with a safe and structured environment. Patient's physical health needs will be addressed by the Hospitalist. Hospitalist Consulted Labs including CBC, CMP, Lipid profile and Hemoglobin A1C levels ordered for baseline reference Social Assessment will be completed and the Mobile Home Technician will work with patient and family to ensure a suitable and safe disposition Medication adjustment will be made as clinically indicated Invega Sustenna 234mg IM x 1 to be given today Usual Wellness Mandaeism/Preservation: - Start Trazodone 50 mg po QHS & 50 mg po QHS PRN between 10 PM & 2 AM for insomnia - Start Melatonin 5 mg po QHS to promote circadian rhythm The patient agreed on the treatment plan, understood the risk, benefit, alternative treatment, potential consequence of no treatment, and gave informed consent. Estimated days: 4 Post hospital care: primary care provider, psychiatric provider Case staffed with Dr. Browne Medications and Allergies Allergies Allergy/AdvReac Type Severity Reaction Status Date / Time No Known Allergies Allergy Verified 09/26/20 22:27 Home Medications Medication Instructions Recorded Confirmed Last Taken Type Divalproex [Saniya BARAJAS] 125 mg PO BID 09/28/20 09/28/20 Unknown History OLANzapine [ZyPREXA] 2.5 mg PO QDAY 09/28/20 09/28/20 Unknown History Active Meds: Active Medications Amlodipine Besylate (Amlodipine 5 Mg Tab) 5 mg PO QDAY [facility] Last Admin: 10/07/20 09:26 Dose: 5 mg Documented by: Clotrimazole (Clotrimazole 1% Cream 15 Gm) 1 applic TP BID [facility] Last Admin: 10/07/20 21:14 Dose: 1 applic Documented by: Insulin Human Lispro (Insulin Lispro 100 Unit/Ml) 0 unit SUB-Q ACHS [facility]; Protocol Last Admin: 10/07/20 21:14 Dose: Not Given Documented by: Risperidone (Risperidone 1 Mg/1 Ml Oral Liqd) 2 mg PO BID [facility] Last Admin: 10/07/20 21:18 Dose: 2 mg Documented by: Valproic Acid (Valproic Acid 250 Mg/5 Ml Oral Liqd) 500 mg PO TID [facility] Last Admin: 10/07/20 21:11 Dose: 500 mg Documented by: Ziprasidone (Ziprasidone Mesylate 20 Mg Vial) 20 mg IM BID [facility] Last Admin: 10/07/20 22:48 Dose: Not Given Documented by: Ziprasidone (Ziprasidone 20 Mg Cap) 20 mg PO BID [facility] Last Admin: 10/07/20 21:12 Dose: 20 mg Documented by: Results - Results Labs/Vitals: Laboratory Last Values WBC 11.1 K/mm3 (4.5-11.0) H 09/29/20 07:17 RBC 4.42 M/mm3 (3.65-5.03) 09/29/20 07:17 Hgb 12.4 gm/dl (10.1-14.3) 09/29/20 07:17 Hct 38.3 % (30.3-42.9) 09/29/20 07:17 MCV 87 fl (79-97) 09/29/20 07:17 MCH 28 pg (28-32) 09/29/20 07:17 MCHC 32 % (30-34) 09/29/20 07:17 RDW 13.9 % (13.2-15.2) 09/29/20 07:17 Plt Count 339 K/mm3 (140-440) 09/29/20 07:17 Lymph % (Auto) 35.3 % (13.4-35.0) H 09/29/20 07:17 [place] % (Auto) 12.9 % (0.0-7.3) H 09/29/20 07:17 Eos % (Auto) 0.5 % (0.0-4.3) 09/29/20 07:17 Baso % (Auto) 0.7 % (0.0-1.8) 09/29/20 07:17 Lymph # (Auto) 3.9 K/mm3 (1.2-5.4) 09/29/20 07:17 [place] # (Auto) 1.4 K/mm3 (0.0-0.8) H 09/29/20 07:17 Eos # (Auto) 0.1 K/mm3 (0.0-0.4) 09/29/20 07:17 Baso # (Auto) 0.1 K/mm3 (0.0-0.1) 09/29/20 07:17 Seg Neutrophils % 50.6 % (40.0-70.0) 09/29/20 07:17 Seg Neutrophils # 5.6 K/mm3 (1.8-7.7) 09/29/20 07:17 Sodium 141 mmol/L (137-145) 09/29/20 07:17 Potassium 3.5 mmol/L (3.6-5.0) L 09/29/20 07:17 Chloride 101.1 mmol/L (98-107) 09/29/20 07:17 Carbon Dioxide 25 mmol/L (22-30) 09/29/20 07:17 Anion Gap 18 mmol/L 09/29/20 07:17 BUN 49 mg/dL (7-17) H 09/29/20 07:17 Creatinine 1.2 mg/dL (0.6-1.2) 09/29/20 07:17 Estimated GFR 57 ml/min 09/29/20 07:17 BUN/Creatinine Ratio 41 % 09/29/20 07:17 Glucose 156 mg/dL (65-100) H 09/29/20 07:17 POC Glucose 178 mg/dL (70-105) H 10/08/20 07:25 Hemoglobin A1c 7.4 % (4-6) H 09/29/20 07:17 Calcium 10.6 mg/dL (8.4-10.2) H 09/29/20 07:17 Total Bilirubin 0.60 mg/dL (0.1-1.2) 09/29/20 07:17 AST 31 units/L (5-40) 09/29/20 07:17 ALT 28 units/L (7-56) 09/29/20 07:17 Alkaline Phosphatase 107 units/L (35-129) 09/29/20 07:17 Total Protein 8.1 g/dL (6.3-8.2) 09/29/20 07:17 Albumin 4.6 g/dL (3.9-5) 09/29/20 07:17 Albumin/Globulin Ratio 1.3 % 09/29/20 07:17 Triglycerides 165 mg/dL (2-149) H 09/29/20 07:17 Cholesterol 214 mg/dL (50-199) H 09/29/20 07:17 LDL Cholesterol Direct 161 mg/dL (50-130) H 09/29/20 07:17 HDL Cholesterol 31 mg/dL (40-59) L 09/29/20 07:17 Cholesterol/HDL Ratio 6.90 % 09/29/20 07:17 TSH 0.972 mlU/mL (0.270-4.200) 09/29/20 07:17 Last Vital Signs Temp 97.9 F 10/07/20 19:34 Pulse 76 10/07/20 19:34 Resp 16 10/07/20 19:34 BP 127/51 10/07/20 19:34 Pulse Ox 100 10/07/20 19:34
[2020-10-08] MEDS ORDERED: PALIPERIDONE PALMITATE 234 MG/1.5 ML SYRINGE IM ONE (10:00)
[2020-10-08] MEDS: CLOTRIMAZOLE 1% CREAM 15 GM TP SCH ×2 (10:27→21:15)
[2020-10-08] MEDS: amLODIPine 5 MG TAB PO SCH (10:41)
[2020-10-09] MEDS: INSULIN LISPRO 100 UNIT/ML SUB-Q SCH ×4 (07:23→21:04)
[2020-10-09] MEDS: VALPROIC ACID 250 MG/5 ML ORAL LIQD PO SCH ×3 (07:43→20:25)
[2020-10-09] MEDS: risperiDONE 1 MG/1 ML ORAL LIQD PO SCH ×2 (09:27→21:03)
[2020-10-09] MEDS: ZIPRASIDONE 20 MG CAP PO SCH ×2 (09:27→21:03)
[2020-10-09] MEDS: amLODIPine 5 MG TAB PO SCH (09:28)
[2020-10-09] MEDS: CLOTRIMAZOLE 1% CREAM 15 GM TP SCH ×2 (09:29→21:03)
--- NOTE | 2020-10-09 10:36 | Progress Note ---
Subjective Date of service: 10/09/20 Principal diagnosis: Acute psychosis Subjective Comment: Per ER Note: pt spent last evening in activity interacting well with selected peer, pt is calm and cooperative, no behavioral issue, ate 25% of snack, medication compliant, forced on going home, went to bed at 2145 and got up at 0030, she was pacing the hallway from 0030 to 0400 and went back to bed , got up at 0515, she continues to pace, had a shower, she slept for approximately 4hrs, no distress noted, will continue to monitor for safety. The patient was seen today. She is calm and cooperative this morning. She is asking to go home. When asking the patient has she been taking her meds, she replies "I only take insulin, I don't take that other stuff." She denies SI/HI and hallucinations. Reason for continued inpatient treatment: The patient appears to be improving. She was given Invega yesterday. Will continue to treat and monitor the patient's progress and prepare her for a safe discharge. REVIEW OF SYSTEMS Constitutional: Negative for weight loss ENT: Negative for stridor Respiratory: Negative for cough or hemoptysis All other systems reviewed and are negative MENTAL STATUS EXAMINATION General Appearance and Behavior: Age appropriate, wearing appropriate clothes, cooperative polite with questioning, good eye contact, argumentative, uncooperative, agitated Cooperation: uncooperative, guarded Psychomotor Behavior: Psychomotor normal Mood: Affect and affective range: congruent with stated mood Thought Process: illogical Thought Content: Denies Speech: Normal volume, Regular rate and rhythm Suicidal Ideation: Denies Homicidal Ideation: Denies hallucination: Denies Delusions: None elicited Impulse Control: Intact Insight and Judgment: Poor Memory: Intact Attention: Divided Orientation: Alert and oriented Diagnoses: Schizophrenia Treatment Plan Patient admitted for inpatient psychiatric evaluation, medication adjustment a nd close monitoring The patient's behavior, mood, sleep and appetite will be closely monitored. Patient enrolled in individual and group therapeutic sessions and encouraged to attend. Patient provided with a safe and structured environment. Patient's physical health needs will be addressed by the Hospitalist. Hospitalist Consulted Labs including CBC, CMP, Lipid profile and Hemoglobin A1C levels ordered for baseline reference Valproic Level Social Assessment will be completed and the Buffet Runner will work with patient and family to ensure a suitable and safe disposition Medication adjustment will be made as clinically indicated Invega Sustenna 234mg IM x 1 to be given yesterday Usual Wellness [employer]/Preservation: - Start Trazodone 50 mg po QHS & 50 mg po QHS PRN between 10 PM & 2 AM for insomnia - Start Melatonin 5 mg po QHS to promote circadian rhythm The patient agreed on the treatment plan, understood the risk, benefit, alternative treatment, potential consequence of no treatment, and gave informed consent. Estimated days: 4 Post hospital care: primary care provider, psychiatric provider Case staffed with Dr. Browne Medications and Allergies Allergies Allergy/AdvReac Type Severity Reaction Status Date / Time No Known Allergies Allergy Verified 09/26/20 22:27 Home Medications Medication Instructions Recorded Confirmed Last Taken Type Divalproex [Saniya BARAJAS] 125 mg PO BID 09/28/20 09/28/20 Unknown History OLANzapine [ZyPREXA] 2.5 mg PO QDAY 09/28/20 09/28/20 Unknown History Active Meds: Active Medications Amlodipine Besylate (Amlodipine 5 Mg Tab) 5 mg PO QDAY [facility] Last Admin: 10/09/20 09:28 Dose: 5 mg Documented by: Clotrimazole (Clotrimazole 1% Cream 15 Gm) 1 applic TP BID [facility] Last Admin: 10/09/20 09:29 Dose: 1 applic Documented by: Insulin Human Lispro (Insulin Lispro 100 Unit/Ml) 0 unit SUB-Q ACHS [facility]; Protocol Last Admin: 10/09/20 07:23 Dose: 2 unit Documented by: Risperidone (Risperidone 1 Mg/1 Ml Oral Liqd) 2 mg PO BID [facility] Last Admin: 10/09/20 09:27 Dose: 2 mg Documented by: Valproic Acid (Valproic Acid 250 Mg/5 Ml Oral Liqd) 500 mg PO TID [facility] Last Admin: 10/09/20 07:43 Dose: 500 mg Documented by: Ziprasidone (Ziprasidone Mesylate 20 Mg Vial) 20 mg IM BID [facility] Last Admin: 10/08/20 21:16 Dose: Not Given Documented by: Ziprasidone (Ziprasidone 20 Mg Cap) 20 mg PO BID [facility] Last Admin: 10/09/20 09:27 Dose: 20 mg Documented by: Results - Results Labs/Vitals: Laboratory Last Values WBC 11.1 K/mm3 (4.5-11.0) H 09/29/20 07:17 RBC 4.42 M/mm3 (3.65-5.03) 09/29/20 07:17 Hgb 12.4 gm/dl (10.1-14.3) 09/29/20 07:17 Hct 38.3 % (30.3-42.9) 09/29/20 07:17 MCV 87 fl (79-97) 09/29/20 07:17 MCH 28 pg (28-32) 09/29/20 07:17 MCHC 32 % (30-34) 09/29/20 07:17 RDW 13.9 % (13.2-15.2) 09/29/20 07:17 Plt Count 339 K/mm3 (140-440) 09/29/20 07:17 Lymph % (Auto) 35.3 % (13.4-35.0) H 09/29/20 07:17 [place] % (Auto) 12.9 % (0.0-7.3) H 09/29/20 07:17 Eos % (Auto) 0.5 % (0.0-4.3) 09/29/20 07:17 Baso % (Auto) 0.7 % (0.0-1.8) 09/29/20 07:17 Lymph # (Auto) 3.9 K/mm3 (1.2-5.4) 09/29/20 07:17 [place] # (Auto) 1.4 K/mm3 (0.0-0.8) H 09/29/20 07:17 Eos # (Auto) 0.1 K/mm3 (0.0-0.4) 09/29/20 07:17 Baso # (Auto) 0.1 K/mm3 (0.0-0.1) 09/29/20 07:17 Seg Neutrophils % 50.6 % (40.0-70.0) 09/29/20 07:17 Seg Neutrophils # 5.6 K/mm3 (1.8-7.7) 09/29/20 07:17 Sodium 141 mmol/L (137-145) 09/29/20 07:17 Potassium 3.5 mmol/L (3.6-5.0) L 09/29/20 07:17 Chloride 101.1 mmol/L (98-107) 09/29/20 07:17 Carbon Dioxide 25 mmol/L (22-30) 09/29/20 07:17 Anion Gap 18 mmol/L 09/29/20 07:17 BUN 49 mg/dL (7-17) H 09/29/20 07:17 Creatinine 1.2 mg/dL (0.6-1.2) 09/29/20 07:17 Estimated GFR 57 ml/min 09/29/20 07:17 BUN/Creatinine Ratio 41 % 09/29/20 07:17 Glucose 156 mg/dL (65-100) H 09/29/20 07:17 POC Glucose 155 mg/dL (70-105) H 10/09/20 06:04 Hemoglobin A1c 7.4 % (4-6) H 09/29/20 07:17 Calcium 10.6 mg/dL (8.4-10.2) H 09/29/20 07:17 Total Bilirubin 0.60 mg/dL (0.1-1.2) 09/29/20 07:17 AST 31 units/L (5-40) 09/29/20 07:17 ALT 28 units/L (7-56) 09/29/20 07:17 Alkaline Phosphatase 107 units/L (35-129) 09/29/20 07:17 Total Protein 8.1 g/dL (6.3-8.2) 09/29/20 07:17 Albumin 4.6 g/dL (3.9-5) 09/29/20 07:17 Albumin/Globulin Ratio 1.3 % 09/29/20 07:17 Triglycerides 165 mg/dL (2-149) H 09/29/20 07:17 Cholesterol 214 mg/dL (50-199) H 09/29/20 07:17 LDL Cholesterol Direct 161 mg/dL (50-130) H 09/29/20 07:17 HDL Cholesterol 31 mg/dL (40-59) L 09/29/20 07:17 Cholesterol/HDL Ratio 6.90 % 09/29/20 07:17 TSH 0.972 mlU/mL (0.270-4.200) 09/29/20 07:17 Last Vital Signs Temp 98.4 F 10/09/20 08:00 Pulse 92 H 10/09/20 09:28 Resp 18 10/09/20 08:00 BP 127/65 10/09/20 09:28 Pulse Ox 100 10/08/20 19:19
[2020-10-09] MEDS: ZIPRASIDONE MESYLATE 20 MG VIAL IM SCH ×2 (11:11→21:04)
[2020-10-10] MEDS: INSULIN LISPRO 100 UNIT/ML SUB-Q SCH ×4 (07:30→17:18)
[2020-10-10] MEDS: VALPROIC ACID 250 MG/5 ML ORAL LIQD PO SCH ×3 (08:04→21:36)
--- NOTE | 2020-10-10 10:11 | Progress Note ---
Subjective Date of service: 10/10/20 Principal diagnosis: Acute psychosis Subjective Comment: Per ER Note: pt was restless most of the night, pacing the hallway, appeared drowsy but refused to lay down, slept for only 2hrs plus, no distress noted, will continue to monitor for safety. The patient was seen today. She is calm and cooperative this morning. She is asking to go home. The patient says she has been sleeping okay despite staff reporting she only slept 2 hours. The patient denies SI/HI. She is asking to go home. Reason for continued inpatient treatment: The patient appears to be improving. She was given Invega yesterday. Will continue to treat and monitor the patient's progress and prepare her for a safe discharge. REVIEW OF SYSTEMS Constitutional: Negative for weight loss ENT: Negative for stridor Respiratory: Negative for cough or hemoptysis All other systems reviewed and are negative MENTAL STATUS EXAMINATION General Appearance and Behavior: Age appropriate, wearing appropriate clothes, cooperative polite with questioning, good eye contact, argumentative, uncooperative, agitated Cooperation: uncooperative, guarded Psychomotor Behavior: Psychomotor normal Mood: "okay" Affect and affective range: congruent with stated mood Thought Process: illogical Thought Content: Denies Speech: Normal volume, Regular rate and rhythm Suicidal Ideation: Denies Homicidal Ideation: Denies hallucination: Denies Delusions: None elicited Impulse Control: Intact Insight and Judgment: PLimited Memory: Intact Attention: Divided Orientation: Alert and oriented Diagnoses: Schizophrenia Treatment Plan Patient admitted for inpatient psychiatric evaluation, medication adjustment and close monitoring The patient's behavior, mood, sleep and appetite will be closely monitored. Patient enrolled in individual and group therapeutic sessions and encouraged to attend. Patient provided with a safe and structured environment. Patient's physical health needs will be addressed by the Hospitalist. Hospitalist Consulted Labs including CBC, CMP, Lipid profile and Hemoglobin A1C levels ordered for baseline reference Valproic Level Social Assessment will be completed and the Grapple Operator will work with patient and family to ensure a suitable and safe disposition Medication adjustment will be made as clinically indicated Invega Sustenna 234mg IM x 1 to be given Saturday Trazodone 50mg po qhs Usual Wellness [employer]/Preservation The patient agreed on the treatment plan, understood the risk, benefit, alternative treatment, potential consequence of no treatment, and gave informed consent. Estimated days: 4 Post hospital care: primary care provider, psychiatric provider Case staffed with Dr. Browne Medications and Allergies Allergies Allergy/AdvReac Type Severity Reaction Status Date / Time No Known Allergies Allergy Verified 09/26/20 22:27 Home Medications Medication Instructions Recorded Confirmed Last Taken Type Divalproex [Saniya BARAJAS] 125 mg PO BID 09/28/20 09/28/20 Unknown History OLANzapine [ZyPREXA] 2.5 mg PO QDAY 09/28/20 09/28/20 Unknown History Active Meds: Active Medications Amlodipine Besylate (Amlodipine 5 Mg Tab) 5 mg PO QDAY [facility] Last Admin: 10/09/20 09:28 Dose: 5 mg Documented by: Clotrimazole (Clotrimazole 1% Cream 15 Gm) 1 applic TP BID [facility] Last Admin: 10/09/20 21:03 Dose: 1 applic Documented by: Insulin Human Lispro (Insulin Lispro 100 Unit/Ml) 0 unit SUB-Q ACHS [facility]; Protocol Last Admin: 10/10/20 07:30 Dose: Not Given Documented by: Risperidone (Risperidone 1 Mg/1 Ml Oral Liqd) 2 mg PO BID [facility] Last Admin: 10/09/20 21:03 Dose: 2 mg Documented by: Valproic Acid (Valproic Acid 250 Mg/5 Ml Oral Liqd) 500 mg PO TID [facility] Last Admin: 10/10/20 08:04 Dose: 500 mg Documented by: Ziprasidone (Ziprasidone Mesylate 20 Mg Vial) 20 mg IM BID [facility] Last Admin: 10/09/20 21:04 Dose: Not Given Documented by: Ziprasidone (Ziprasidone 20 Mg Cap) 20 mg PO BID [facility] Last Admin: 10/09/20 21:03 Dose: 20 mg Documented by: Results - Results Labs/Vitals: Laboratory Last Values WBC 11.1 K/mm3 (4.5-11.0) H 09/29/20 07:17 RBC 4.42 M/mm3 (3.65-5.03) 09/29/20 07:17 Hgb 12.4 gm/dl (10.1-14.3) 09/29/20 07:17 Hct 38.3 % (30.3-42.9) 09/29/20 07:17 MCV 87 fl (79-97) 09/29/20 07:17 MCH 28 pg (28-32) 09/29/20 07:17 MCHC 32 % (30-34) 09/29/20 07:17 RDW 13.9 % (13.2-15.2) 09/29/20 07:17 Plt Count 339 K/mm3 (140-440) 09/29/20 07:17 Lymph % (Auto) 35.3 % (13.4-35.0) H 09/29/20 07:17 [place] % (Auto) 12.9 % (0.0-7.3) H 09/29/20 07:17 Eos % (Auto) 0.5 % (0.0-4.3) 09/29/20 07:17 Baso % (Auto) 0.7 % (0.0-1.8) 09/29/20 07:17 Lymph # (Auto) 3.9 K/mm3 (1.2-5.4) 09/29/20 07:17 [place] # (Auto) 1.4 K/mm3 (0.0-0.8) H 09/29/20 07:17 Eos # (Auto) 0.1 K/mm3 (0.0-0.4) 09/29/20 07:17 Baso # (Auto) 0.1 K/mm3 (0.0-0.1) 09/29/20 07:17 Seg Neutrophils % 50.6 % (40.0-70.0) 09/29/20 07:17 Seg Neutrophils # 5.6 K/mm3 (1.8-7.7) 09/29/20 07:17 Sodium 141 mmol/L (137-145) 09/29/20 07:17 Potassium 3.5 mmol/L (3.6-5.0) L 09/29/20 07:17 Chloride 101.1 mmol/L (98-107) 09/29/20 07:17 Carbon Dioxide 25 mmol/L (22-30) 09/29/20 07:17 Anion Gap 18 mmol/L 09/29/20 07:17 BUN 49 mg/dL (7-17) H 09/29/20 07:17 Creatinine 1.2 mg/dL (0.6-1.2) 09/29/20 07:17 Estimated GFR 57 ml/min 09/29/20 07:17 BUN/Creatinine Ratio 41 % 09/29/20 07:17 Glucose 156 mg/dL (65-100) H 09/29/20 07:17 POC Glucose 190 mg/dL (70-105) H 10/10/20 06:08 Hemoglobin A1c 7.4 % (4-6) H 09/29/20 07:17 Calcium 10.6 mg/dL (8.4-10.2) H 09/29/20 07:17 Total Bilirubin 0.60 mg/dL (0.1-1.2) 09/29/20 07:17 AST 31 units/L (5-40) 09/29/20 07:17 ALT 28 units/L (7-56) 09/29/20 07:17 Alkaline Phosphatase 107 units/L (35-129) 09/29/20 07:17 Total Protein 8.1 g/dL (6.3-8.2) 09/29/20 07:17 Albumin 4.6 g/dL (3.9-5) 09/29/20 07:17 Albumin/Globulin Ratio 1.3 % 09/29/20 07:17 Triglycerides 165 mg/dL (2-149) H 09/29/20 07:17 Cholesterol 214 mg/dL (50-199) H 09/29/20 07:17 LDL Cholesterol Direct 161 mg/dL (50-130) H 09/29/20 07:17 HDL Cholesterol 31 mg/dL (40-59) L 09/29/20 07:17 Cholesterol/HDL Ratio 6.90 % 09/29/20 07:17 TSH 0.972 mlU/mL (0.270-4.200) 09/29/20 07:17 Last Vital Signs Temp 97.6 F 10/10/20 07:20 Pulse 77 10/10/20 07:20 Resp 16 10/10/20 07:20 BP 116/72 10/10/20 07:20 Pulse Ox 100 10/10/20 07:20
[2020-10-10] MEDS: amLODIPine 5 MG TAB PO SCH (11:00)
[2020-10-10] MEDS: ZIPRASIDONE 20 MG CAP PO SCH ×3 (11:00→21:39)
[2020-10-10] MEDS: CLOTRIMAZOLE 1% CREAM 15 GM TP SCH ×2 (11:02→21:36)
[2020-10-10] MEDS: risperiDONE 1 MG/1 ML ORAL LIQD PO SCH ×2 (11:03→22:00)
[2020-10-10] MEDS: ZIPRASIDONE MESYLATE 20 MG VIAL IM SCH (13:20)
[2020-10-10] MEDS: metFORMIN XR 500MG TAB PO SCH (17:16)
--- NOTE | 2020-10-10 17:22 | Progress Note ---
Assessment and Plan Assessment and plan: 52-year-old female with a past medical superobesity, DM, HTN and schizophrenia has been admitted for psychiatric stabilization. Assessment and Plan - Patient Problems (1) Hypertension Current Visit: Yes Status: Acute Qualifiers: Hypertension type: primary hypertension Qualified Code(s): I10 - Essential (primary) hypertension Plan to address problem: Monitor blood pressure every shift, continue medical management (2) Diabetes, hemoglobin A1c 7.4 Current Visit: Yes Status: Acute Plan to address problem: Patient takes Metformin at home , normal renal function. Patient is refusing to take sliding scale insulin and wants to resume her home Metformin. Fasting blood glucose is ranging from 1 30-1 55 but today 199. Will resume Metformin 500 mg twice daily and further monitor. Continue consistent carbohydrate diet, Accu-Chek, hypoglycemia protocol, (3) Schizophrenia Current Visit: Yes Status: Acute Admitted for stabilization and being managed by psychiatry. (4) Obesity Current Visit: Yes Status: Acute Qualifiers: Body mass index: BMI 40.0-44.9 Plan to address problem: Balanced diet, increase physical activity discharge, outpatient pulmonary follow-up for sleep study, CPAP nightly Discussed with the patient and the nursing staff. History Interval history: Hospitalist service reconsulted today for elevated blood glucose. Patient was placed on sliding scale insulin but she is refusing to take insulin and wants to resume her Metformin she was taking at home. She has no new complaints or issues otherwise. Vital signs stable. She is fully alert or oriented. She is ambulating. She is actively participating in psychotherapy. Answering quite appropriately. Hospitalist Physical - Constitutional Vitals: Temp Pulse Resp BP Pulse Ox 97.6 F 77 16 116/77 100 10/10/20 07:20 10/10/20 11:00 10/10/20 07:20 10/10/20 11:00 10/10/20 07:20 General appearance: Present: no acute distress, well-nourished, other (Obese) - EENT Eyes: Present: PERRL, EOM intact. Absent: scleral icterus, conjunctival injection ENT: clear oral mucosa - Neck Neck: Present: supple - Respiratory Respiratory effort: normal Respiratory: bilateral: CTA - Cardiovascular Rhythm: regular - Extremities Extremities: No edema - Abdominal General gastrointestinal: soft, non-tender, normal bowel sounds - Integumentary Integumentary: Absent: rash - Psychiatric Psychiatric: other (Stable mood) - Neurologic Neurologic: other (Ambulating without difficulty) Results - Labs CBC & Chem 7: 09/29/20 07:17 09/29/20 07:17 Labs: Laboratory Last Values WBC 11.1 K/mm3 (4.5-11.0) H 09/29/20 07:17 RBC 4.42 M/mm3 (3.65-5.03) 09/29/20 07:17 Hgb 12.4 gm/dl (10.1-14.3) 09/29/20 07:17 Hct 38.3 % (30.3-42.9) 09/29/20 07:17 MCV 87 fl (79-97) 09/29/20 07:17 MCH 28 pg (28-32) 09/29/20 07:17 MCHC 32 % (30-34) 09/29/20 07:17 RDW 13.9 % (13.2-15.2) 09/29/20 07:17 Plt Count 339 K/mm3 (140-440) 09/29/20 07:17 Lymph % (Auto) 35.3 % (13.4-35.0) H 09/29/20 07:17 [place] % (Auto) 12.9 % (0.0-7.3) H 09/29/20 07:17 Eos % (Auto) 0.5 % (0.0-4.3) 09/29/20 07:17 Baso % (Auto) 0.7 % (0.0-1.8) 09/29/20 07:17 Lymph # (Auto) 3.9 K/mm3 (1.2-5.4) 09/29/20 07:17 [place] # (Auto) 1.4 K/mm3 (0.0-0.8) H 09/29/20 07:17 Eos # (Auto) 0.1 K/mm3 (0.0-0.4) 09/29/20 07:17 Baso # (Auto) 0.1 K/mm3 (0.0-0.1) 09/29/20 07:17 Seg Neutrophils % 50.6 % (40.0-70.0) 09/29/20 07:17 Seg Neutrophils # 5.6 K/mm3 (1.8-7.7) 09/29/20 07:17 Sodium 141 mmol/L (137-145) 09/29/20 07:17 Potassium 3.5 mmol/L (3.6-5.0) L 09/29/20 07:17 Chloride 101.1 mmol/L (98-107) 09/29/20 07:17 Carbon Dioxide 25 mmol/L (22-30) 09/29/20 07:17 Anion Gap 18 mmol/L 09/29/20 07:17 BUN 49 mg/dL (7-17) H 09/29/20 07:17 Creatinine 1.2 mg/dL (0.6-1.2) 09/29/20 07:17 Estimated GFR 57 ml/min 09/29/20 07:17 BUN/Creatinine Ratio 41 % 09/29/20 07:17 Glucose 156 mg/dL (65-100) H 09/29/20 07:17 POC Glucose 206 mg/dL (70-105) H 10/10/20 16:04 Hemoglobin A1c 7.4 % (4-6) H 09/29/20 07:17 Calcium 10.6 mg/dL (8.4-10.2) H 09/29/20 07:17 Total Bilirubin 0.60 mg/dL (0.1-1.2) 09/29/20 07:17 AST 31 units/L (5-40) 09/29/20 07:17 ALT 28 units/L (7-56) 09/29/20 07:17 Alkaline Phosphatase 107 units/L (35-129) 09/29/20 07:17 Total Protein 8.1 g/dL (6.3-8.2) 09/29/20 07:17 Albumin 4.6 g/dL (3.9-5) 09/29/20 07:17 Albumin/Globulin Ratio 1.3 % 09/29/20 07:17 Triglycerides 165 mg/dL (2-149) H 09/29/20 07:17 Cholesterol 214 mg/dL (50-199) H 09/29/20 07:17 LDL Cholesterol Direct 161 mg/dL (50-130) H 09/29/20 07:17 HDL Cholesterol 31 mg/dL (40-59) L 09/29/20 07:17 Cholesterol/HDL Ratio 6.90 % 09/29/20 07:17 TSH 0.972 mlU/mL (0.270-4.200) 09/29/20 07:17 Domínguez/IV: Voiding Method Toilet Active Medications - Current Medications Current Medications: Generic Name Dose Route Start Last Admin Trade Name Freq PRN Reason Stop Dose Admin Amlodipine Besylate 5 mg 09/30/20 10:00 10/10/20 11:00 Amlodipine 5 Mg Tab PO 5 mg QDAY LIV Administration Clotrimazole 1 applic 10/04/20 12:00 10/10/20 11:02 Clotrimazole 1% Cream 15 Gm TP 1 applic BID LIV Administration Insulin Human Lispro 0 unit 09/29/20 22:00 10/10/20 17:18 Insulin Lispro 100 Unit/Ml SUB-Q Not Given ACHS [facility] Protocol Metformin HCl 500 mg 10/10/20 16:30 10/10/20 17:16 Metformin Xr 500mg Tab PO 500 mg BIDAC LIV Administration Risperidone 2 mg 10/04/20 10:00 10/10/20 11:03 Risperidone 1 Mg/1 Ml Oral Liqd PO 2 mg BID LIV Administration Trazodone HCl 50 mg 10/10/20 22:00 Trazodone 50 Mg Tab PO QHS LIV Valproic Acid 500 mg 10/04/20 08:00 10/10/20 17:17 Valproic Acid 250 Mg/5 Ml Oral Liqd PO 500 mg TID LIV Administration Ziprasidone 20 mg 10/05/20 10:00 10/10/20 13:20 Ziprasidone Mesylate 20 Mg Vial IM 20 mg BID LIV Administration Ziprasidone 20 mg 10/05/20 10:00 10/10/20 11:00 Ziprasidone 20 Mg Cap PO 20 mg BID LIV Administration Nutrition/Malnutrition Assess - Dietary Evaluation Nutrition/Malnutrition Findings: Nutrition Notes Start: 10/04/20 14:00 Freq: Status: Active Protocol: Document 10/10/20 09:58 ALIYAH (Rec: 10/10/20 10:04 ALIYAH [id number]) Nutrition Notes Initial or Follow up Reassessment Current Diagnosis Diabetes Other Pertinent Diagnosis Schizophrenia Current Diet Cardiac/Consistent CHO + Glucerna BID Labs/Tests Reviewed Pertinent Medications Reviewed Height 5 ft 3 in Weight 113 kg [place] Body Weight (kg) 52.27 BMI 44.1 Weight Status Morbidly Obese Subjective/Other Information Pt has consumed 22% of meals and 42% of ONS since last assessment. Percent of energy/protein needs met: 37% energy 41% pro (includes ONS) Burn Absent Trauma Absent #1 Nutrition Diagnosis Inadequate oral intake Diagnosis Progress(for reassessment Continues documentation) Is patient on ventilator? No Is Patient Ambulatory and/or Out of Bed Yes REE-([place]-[facility]. or-ambulatory/OOB) [ 2215.369 NUTR.[id number]] Kcal/Kg value to use for calculation 15 Approximate Energy Requirements Using 1695 kcal/Kg Calculation Used for Recommendations Kcal/kg Additional Notes Pro needs 0.8-1g/kg adjBW: 66- 83g/day Fluid needs 1ml/kcal Nutrition Intervention Change Diet Order: Continue current diet as ordered Add Supplement/Snack (indicate name/kcal Glucerna BID /protein ) Provides kCal: 440 Provides Protein (gm) 20 Goal #1 PO intake of meals plus ONS to meet at least 75% energy and pro needs Follow-Up By: 10/17/20 Additional Comments F/U: intake (meals/ONS), wt
[2020-10-10] MEDS ORDERED: traZODone 50 MG TAB PO SCH (22:00)
[2020-10-11] MEDS: ZIPRASIDONE MESYLATE 20 MG VIAL IM SCH ×3 (07:03→21:08)
[2020-10-11] MEDS: INSULIN LISPRO 100 UNIT/ML SUB-Q SCH ×3 (07:32→12:17)
[2020-10-11] MEDS: metFORMIN XR 500MG TAB PO SCH ×2 (07:58→17:09)
[2020-10-11] MEDS: VALPROIC ACID 250 MG/5 ML ORAL LIQD PO SCH ×3 (08:10→20:50)
--- NOTE | 2020-10-11 09:43 | Progress Note ---
Subjective Date of service: 10/11/20 Principal diagnosis: Acute psychosis Subjective Comment: The patient was seen today. She is pleasant. She is calm and cooperative this morning. She is asking to go home. She says "I feel good. I'm just listening to music." She denies SI/HI or hallucinations of any kind. Reason for continued inpatient treatment: The patient has improved significantly, however staff states she has not been sleeping and at times appear confused. Will adjust medications and discharge tomorrow if the patient has an uneventful night. REVIEW OF SYSTEMS Constitutional: Negative for weight loss ENT: Negative for stridor Respiratory: Negative for cough or hemoptysis All other systems reviewed and are negative MENTAL STATUS EXAMINATION General Appearance and Behavior: Age appropriate, wearing appropriate clothes, cooperative polite with questioning, good eye contact, argumentative, uncooperative, agitated Cooperation: uncooperative, guarded Psychomotor Behavior: Psychomotor normal Mood: "okay" Affect and affective range: congruent with stated mood Thought Process: illogical Thought Content: Denies Speech: Normal volume, Regular rate and rhythm Suicidal Ideation: Denies Homicidal Ideation: Denies hallucination: Denies Delusions: None elicited Impulse Control: Intact Insight and Judgment: PLimited Memory: Intact Attention: Divided Orientation: Alert and oriented Diagnoses: Schizophrenia Treatment Plan Patient admitted for inpatient psychiatric evaluation, medication adjustment and close monitoring The patient's behavior, mood, sleep and appetite will be closely monitored. Patient enrolled in individual and group therapeutic sessions and encouraged to attend. Patient provided with a safe and structured environment. Patient's physical health needs will be addressed by the Hospitalist. Hospitalist Consulted Labs including CBC, CMP, Lipid profile and Hemoglobin A1C levels ordered for baseline reference Valproic Level Social Assessment will be completed and the [employer] Loader will work with patient and family to ensure a suitable and safe disposition Medication adjustment will be made as clinically indicated Invega Sustenna 234mg IM x 1 to be given Saturday Increased Trazodone 100mg po qhs Melatonin 5mg po qhs prn insomnia Usual Wellness Cheondoism/Preservation The patient agreed on the treatment plan, understood the risk, benefit, alternative treatment, potential consequence of no treatment, and gave informed consent. Estimated days: 1 Post hospital care: primary care provider, psychiatric provider Case staffed with Dr. Browne Medications and Allergies Allergies Allergy/AdvReac Type Severity Reaction Status Date / Time No Known Allergies Allergy Verified 09/26/20 22:27 Home Medications Medication Instructions Recorded Confirmed Last Taken Type Divalproex Dr [Saniya DR] 125 mg PO BID 09/28/20 09/28/20 Unknown History OLANzapine [ZyPREXA] 2.5 mg PO QDAY 09/28/20 09/28/20 Unknown History Active Meds: Active Medications Amlodipine Besylate (Amlodipine 5 Mg Tab) 5 mg PO QDAY [facility] Last Admin: 10/10/20 11:00 Dose: 5 mg Documented by: Clotrimazole (Clotrimazole 1% Cream 15 Gm) 1 applic TP BID [facility] Last Admin: 10/10/20 21:36 Dose: 1 applic Documented by: Insulin Human Lispro (Insulin Lispro 100 Unit/Ml) 0 unit SUB-Q ACHS [facility]; Protocol Last Admin: 10/11/20 08:11 Dose: Not Given Documented by: Metformin HCl (Metformin Xr 500mg Tab) 500 mg PO BIDAC [facility] Last Admin: 10/11/20 07:58 Dose: 500 mg Documented by: Risperidone (Risperidone 1 Mg/1 Ml Oral Liqd) 2 mg PO BID [facility] Last Admin: 10/10/20 22:00 Dose: 2 mg Documented by: Trazodone HCl (Trazodone 50 Mg Tab) 50 mg PO QHS [facility] Last Admin: 10/10/20 21:39 Dose: 50 mg Documented by: Valproic Acid (Valproic Acid 250 Mg/5 Ml Oral Liqd) 500 mg PO TID [facility] Last Admin: 10/11/20 08:10 Dose: 500 mg Documented by: Ziprasidone (Ziprasidone Mesylate 20 Mg Vial) 20 mg IM BID [facility] Last Admin: 10/11/20 07:03 Dose: Not Given Documented by: Ziprasidone (Ziprasidone 20 Mg Cap) 20 mg PO BID [facility] Last Admin: 10/10/20 21:39 Dose: 20 mg Documented by: Results - Results Labs/Vitals: Laboratory Last Values WBC 11.1 K/mm3 (4.5-11.0) H 09/29/20 07:17 RBC 4.42 M/mm3 (3.65-5.03) 09/29/20 07:17 Hgb 12.4 gm/dl (10.1-14.3) 09/29/20 07:17 Hct 38.3 % (30.3-42.9) 09/29/20 07:17 MCV 87 fl (79-97) 09/29/20 07:17 MCH 28 pg (28-32) 09/29/20 07:17 MCHC 32 % (30-34) 09/29/20 07:17 RDW 13.9 % (13.2-15.2) 09/29/20 07:17 Plt Count 339 K/mm3 (140-440) 09/29/20 07:17 Lymph % (Auto) 35.3 % (13.4-35.0) H 09/29/20 07:17 [place] % (Auto) 12.9 % (0.0-7.3) H 09/29/20 07:17 Eos % (Auto) 0.5 % (0.0-4.3) 09/29/20 07:17 Baso % (Auto) 0.7 % (0.0-1.8) 09/29/20 07:17 Lymph # (Auto) 3.9 K/mm3 (1.2-5.4) 09/29/20 07:17 [place] # (Auto) 1.4 K/mm3 (0.0-0.8) H 09/29/20 07:17 Eos # (Auto) 0.1 K/mm3 (0.0-0.4) 09/29/20 07:17 Baso # (Auto) 0.1 K/mm3 (0.0-0.1) 09/29/20 07:17 Seg Neutrophils % 50.6 % (40.0-70.0) 09/29/20 07:17 Seg Neutrophils # 5.6 K/mm3 (1.8-7.7) 09/29/20 07:17 Sodium 141 mmol/L (137-145) 09/29/20 07:17 Potassium 3.5 mmol/L (3.6-5.0) L 09/29/20 07:17 Chloride 101.1 mmol/L (98-107) 09/29/20 07:17 Carbon Dioxide 25 mmol/L (22-30) 09/29/20 07:17 Anion Gap 18 mmol/L 09/29/20 07:17 BUN 49 mg/dL (7-17) H 09/29/20 07:17 Creatinine 1.2 mg/dL (0.6-1.2) 09/29/20 07:17 Estimated GFR 57 ml/min 09/29/20 07:17 BUN/Creatinine Ratio 41 % 09/29/20 07:17 Glucose 156 mg/dL (65-100) H 09/29/20 07:17 POC Glucose 173 mg/dL (70-105) H 10/11/20 07:27 Hemoglobin A1c 7.4 % (4-6) H 09/29/20 07:17 Calcium 10.6 mg/dL (8.4-10.2) H 09/29/20 07:17 Total Bilirubin 0.60 mg/dL (0.1-1.2) 09/29/20 07:17 AST 31 units/L (5-40) 09/29/20 07:17 ALT 28 units/L (7-56) 09/29/20 07:17 Alkaline Phosphatase 107 units/L (35-129) 09/29/20 07:17 Total Protein 8.1 g/dL (6.3-8.2) 09/29/20 07:17 Albumin 4.6 g/dL (3.9-5) 09/29/20 07:17 Albumin/Globulin Ratio 1.3 % 09/29/20 07:17 Triglycerides 165 mg/dL (2-149) H 09/29/20 07:17 Cholesterol 214 mg/dL (50-199) H 09/29/20 07:17 LDL Cholesterol Direct 161 mg/dL (50-130) H 09/29/20 07:17 HDL Cholesterol 31 mg/dL (40-59) L 09/29/20 07:17 Cholesterol/HDL Ratio 6.90 % 09/29/20 07:17 TSH 0.972 mlU/mL (0.270-4.200) 09/29/20 07:17 Last Vital Signs Temp 98.8 F 10/10/20 19:45 Pulse 81 10/10/20 19:45 Resp 16 10/10/20 19:45 BP 141/65 10/10/20 19:45 Pulse Ox 97 10/10/20 19:45
[2020-10-11] MEDS: amLODIPine 5 MG TAB PO SCH (10:07)
[2020-10-11] MEDS: CLOTRIMAZOLE 1% CREAM 15 GM TP SCH ×2 (10:07→21:03)
[2020-10-11] MEDS: risperiDONE 1 MG/1 ML ORAL LIQD PO SCH ×2 (10:07→21:03)
[2020-10-11] MEDS: ZIPRASIDONE 20 MG CAP PO SCH ×2 (10:07→21:03)
[2020-10-11] MEDS ORDERED: FLUCONAZOLE 200 MG TAB PO ONE (20:00)
[2020-10-11] MEDS ORDERED: MELATONIN 5 MG TAB PO PRN (22:00)
[2020-10-11] MEDS ORDERED: traZODone 100 MG TAB PO SCH (22:00)
[2020-10-12] MEDS: metFORMIN XR 500MG TAB PO SCH (08:07)
[2020-10-12] MEDS: VALPROIC ACID 250 MG/5 ML ORAL LIQD PO SCH (08:07)
[2020-10-12 08:18] VITALS: BP 126/67
[2020-10-12] MEDS: amLODIPine 5 MG TAB PO SCH (09:19)
[2020-10-12] MEDS: ZIPRASIDONE 20 MG CAP PO SCH (09:19)
[2020-10-12] MEDS: risperiDONE 1 MG/1 ML ORAL LIQD PO SCH (09:19)
[2020-10-12] MEDS: CLOTRIMAZOLE 1% CREAM 15 GM TP SCH (09:20)
[2020-10-12] MEDS: ZIPRASIDONE MESYLATE 20 MG VIAL IM SCH (09:24)
--- NOTE | 2020-10-12 09:33 | Discharge Summary ---
Providers - Providers Date of Admission: 09/27/20 22:45 Date of discharge: 10/12/20 Attending physician: EDWIN CHURCH MD 09/27/20 18:28 Consult to Physician [CONS] Routine Comment: Consulting Provider: VANCE BAL Physician Instructions: Reason For Exam: manage medical conditions Primary care physician: [employer] SYSTEM TESTER Hospitalization Reason for admission: psychosis Admitting Diagnosis: F20.9 - SCHIZOPHRENIA, UNSPECIFIED Condition: Stable Hospital course: The patient was provided inpatient psychiatric treatment with safe and supportive care, medication adjustment, adverse effect monitoring, medical evaluations, medical treatments, assessment and psycho-education. The patient's mood, cognition, behavior, moral support are improved and stabilized. St the time of discharge, the patient had no endangering behavior and no debilitating adverse effects. The patient agreed on potential consequences of no treatment and gave informed consent. 10/07 The patient was seen today. She was more calm for me during this evaluation than previous ones. Although, the patient denies SI/HI or hallucinations of any kind, the nurse says the patient has been responding to internal stimuli, up all night and rolling around on the floor. 10/08 The patient was seen today. She is agitated. She is pacing and tells me to "get the f*ck away from her." The patient says she is going home and only came to this hospital to visit and states "next thing I know yall locked me up in here." She continues to pace and ask for her clothing while I'm trying to talk to her. 10/09 pt spent last evening in activity interacting well with selected peer, pt is calm and cooperative, no behavioral issue, ate 25% of snack, medication compliant, forced on going home, went to bed at 2145 and got up at 0030, she was pacing the hallway from 0030 to 0400 and went back to bed , got up at 0515, she continues to pace, had a shower, she slept for approximately 4hrs, no distress noted, will continue to monitor for safety. The patient was seen today. She is calm and cooperative this morning. She is asking to go home. When asking the patient has she been taking her meds, she replies "I only take insulin, I don't take that other stuff." She denies SI/HI and hallucinations. 10/10 The patient was seen today. She is calm and cooperative this morning. She is asking to go home. The patient says she has been sleeping okay despite staff reporting she only slept 2 hours. The patient denies SI/HI. She is asking to go home. 10/11 The patient was seen today. She is pleasant. She is calm and cooperative this morning. She is asking to go home. She says "I feel good. I'm just listening to music." She denies SI/HI or hallucinations of any kind. Disposition: DC-30 STILL A PATIENT Allergies/Adverse Reactions: Allergies No Known Allergies Allergy (Verified 09/26/20 22:27) Vital Signs: Last Vital Signs Temp 97.8 F 10/12/20 06:46 Pulse 69 10/12/20 09:19 Resp 18 10/12/20 06:46 BP 126/67 10/12/20 09:19 Pulse Ox 100 10/12/20 06:46 Last Lab: Laboratory Last Values WBC 11.1 K/mm3 (4.5-11.0) H 09/29/20 07:17 RBC 4.42 M/mm3 (3.65-5.03) 09/29/20 07:17 Hgb 12.4 gm/dl (10.1-14.3) 09/29/20 07:17 Hct 38.3 % (30.3-42.9) 09/29/20 07:17 MCV 87 fl (79-97) 09/29/20 07:17 MCH 28 pg (28-32) 09/29/20 07:17 MCHC 32 % (30-34) 09/29/20 07:17 RDW 13.9 % (13.2-15.2) 09/29/20 07:17 Plt Count 339 K/mm3 (140-440) 09/29/20 07:17 Lymph % (Auto) 35.3 % (13.4-35.0) H 09/29/20 07:17 [place] % (Auto) 12.9 % (0.0-7.3) H 09/29/20 07:17 Eos % (Auto) 0.5 % (0.0-4.3) 09/29/20 07:17 Baso % (Auto) 0.7 % (0.0-1.8) 09/29/20 07:17 Lymph # (Auto) 3.9 K/mm3 (1.2-5.4) 09/29/20 07:17 [place] # (Auto) 1.4 K/mm3 (0.0-0.8) H 09/29/20 07:17 Eos # (Auto) 0.1 K/mm3 (0.0-0.4) 09/29/20 07:17 Baso # (Auto) 0.1 K/mm3 (0.0-0.1) 09/29/20 07:17 Seg Neutrophils % 50.6 % (40.0-70.0) 09/29/20 07:17 Seg Neutrophils # 5.6 K/mm3 (1.8-7.7) 09/29/20 07:17 Sodium 141 mmol/L (137-145) 09/29/20 07:17 Potassium 3.5 mmol/L (3.6-5.0) L 09/29/20 07:17 Chloride 101.1 mmol/L (98-107) 09/29/20 07:17 Carbon Dioxide 25 mmol/L (22-30) 09/29/20 07:17 Anion Gap 18 mmol/L 09/29/20 07:17 BUN 49 mg/dL (7-17) H 09/29/20 07:17 Creatinine 1.2 mg/dL (0.6-1.2) 09/29/20 07:17 Estimated GFR 57 ml/min 09/29/20 07:17 BUN/Creatinine Ratio 41 % 09/29/20 07:17 Glucose 156 mg/dL (65-100) H 09/29/20 07:17 POC Glucose 133 mg/dL (70-105) H 10/11/20 15:59 Hemoglobin A1c 7.4 % (4-6) H 09/29/20 07:17 Calcium 10.6 mg/dL (8.4-10.2) H 09/29/20 07:17 Total Bilirubin 0.60 mg/dL (0.1-1.2) 09/29/20 07:17 AST 31 units/L (5-40) 09/29/20 07:17 ALT 28 units/L (7-56) 09/29/20 07:17 Alkaline Phosphatase 107 units/L (35-129) 09/29/20 07:17 Total Protein 8.1 g/dL (6.3-8.2) 09/29/20 07:17 Albumin 4.6 g/dL (3.9-5) 09/29/20 07:17 Albumin/Globulin Ratio 1.3 % 09/29/20 07:17 Triglycerides 165 mg/dL (2-149) H 09/29/20 07:17 Cholesterol 214 mg/dL (50-199) H 09/29/20 07:17 LDL Cholesterol Direct 161 mg/dL (50-130) H 09/29/20 07:17 HDL Cholesterol 31 mg/dL (40-59) L 09/29/20 07:17 Cholesterol/HDL Ratio 6.90 % 09/29/20 07:17 TSH 0.972 mlU/mL (0.270-4.200) 09/29/20 07:17 Core Measure Documentation - Palliative Care Palliative Care/ Comfort Measures: Not Applicable - Core Measures Any of the following diagnoses?: none Exam - Constitutional Vitals: Temp Pulse Resp BP Pulse Ox 97.8 F 69 18 126/67 100 10/12/20 06:46 10/12/20 09:19 10/12/20 06:46 10/12/20 09:19 10/12/20 06:46 General appearance: Present: no acute distress - EENT Eyes: Present: EOM intact ENT: hearing intact, clear oral mucosa - Neck Neck: Present: supple, normal ROM - Respiratory Respiratory effort: normal Plan Activity: advance as tolerated Weight Bearing Status: Weight Bear as Tolerated Care Plan Goals: Maintain good and stable mental health Plan of Treatment: The patient should be compliant with medications, not to use drugs, and not to drink alcohol. The patient understands that if suicidal ideas, homicidal ideas or any endangering feeling arise, the patient should seek assistance including, but not limited to crisis hotline, and emergency room. Health Concerns: DM, HTN Assessment: Schizophrenia Follow up with: PRIMARY CARE,MD [Primary Care Provider] - 7 Days Prescriptions: traZODone [Desyrel] 100 mg PO QHS #30 tablet Melatonin [Melatonin 5MG TAB] 5 mg PO QHS PRN #30 tablet PRN Reason: Sleep VALPROIC ACID Liq [DepaKENE Liq] 500 mg PO TID #1 bottle Ziprasidone [Geodon] 20 mg PO BID #60 capsule risperiDONE [RisperDAL ORAL LIQD] 2 mg PO BID #60 ml
[2020-10-14] MEDS ORDERED: FLUCONAZOLE 200 MG TAB PO ONE (22:00)
== END 2020-10-12 10:55 | disposition home or self-care (01) | DRG 885 ==
LOC: UNDOADMIN 15:55 → 3A 15:55 → 5A 22:45
PROVIDERS: ADMIT Psychiatry & Neurology Psychiatry; ATTEND Psychiatry & Neurology Psychiatry
DX: F20.9 Schizophrenia, unspecified (principal); Z68.41 Body mass index [BMI] 40.0-44.9, adult; I10 Essential (primary) hypertension; E11.9 Type 2 diabetes mellitus without complications; E66.9 Obesity, unspecified; Z71.3 Dietary counseling and surveillance
CPT/HCPCS: 36415; 71045; 80048; 80053; 80061; 80307; 80320; 81001; 82962; 83036; 84443; 85025; G0378; G0480; J1815; J2060; J2426; J3486; U0003